=== PATIENT | female | born 1930 | race Caucasian/White ===

== ENCOUNTER 2017-08-29 08:21 | Day surgery (SDC) | payer MEDICARE, BC ==
[~2017-08-29 08:21] MED LIST: Lactated Ringers 1,000 ML IV SCH; Sodium Chloride 0.9% 10 ML Syringe FLUSH PRN
[2017-08-29] MEDS ORDERED: Propofol 200 MG/20 ML SDV ONE ×2 (09:10→09:11)
[2017-08-29] MEDS ORDERED: Midazolam 1 MG/ML 2 ML SDV ONE ×2 (09:10→09:11)
--- NOTE | 2017-08-29 09:11 | PCM.PN ---
- General Info Date of Service: 08/29/17 - Review of Systems Systems Review Comment:: 86-year-old female referred for colonoscopy. She has a history of colon polyps. She also has a known history of uterine cancer. It is been 5 years since her last colonoscopy. She is medically stable to proceed today. Her recent history and physical is reviewed and there is no significant changes. I have discussed the proposed colonoscopy with the patient. She understands indications options and risks and agrees to proceed. - Patient Data Vitals - Most Recent: Last Vital Signs Temp 98.1 F 08/29/17 08:50 Pulse 78 08/29/17 08:50 Resp 20 08/29/17 08:50 BP 130/78 08/29/17 08:50 Pulse Ox 95 08/29/17 08:50 Weight - Most Recent: 113.852 kg Med Orders - Current: Current Medications Lactated Ringer's (Ringers, Lactated) 1,000 mls @ 125 mls/hr IV ASDIRECTED [facility] Last Admin: 08/29/17 09:01 Dose: 125 mls/hr Sodium Chloride (Saline Flush) 10 ml FLUSH ASDIRECTED PRN PRN Reason: Keep Vein Open - Problem List Review Problem List Initiated/Reviewed/Updated: Yes - Assessment Assessment:: History of colon polyps History of uterine cancer - Plan Plan:: Colonoscopy
--- NOTE | 2017-08-29 09:50 | PCM.OPNOTE ---
- General Post-Op/Procedure Note Date of Surgery/Procedure: 08/29/17 Operative Procedure(s): colonoscopy with polypectomy Findings: Small colon polyps Diverticulosis Pre Op Diagnosis: History of colon polyps Post-Op Diagnosis: Colon polyps. Diverticulosis Anesthesia Technique: MAC Primary Surgeon: Alec Rodriguez Pathology: Multiple colon polyps Output, Urine Amount: 0 EBL in mLs: 0 Complications: None Condition: Good Free Text/Narrative:: Intake & Output 08/28/17 08/29/17 08/29/17 22:59 06:59 14:59 Intake Total 700 Balance 700
[2017-08-29 10:28] VITALS: BP 118/53
--- NOTE | 2017-08-29 16:42 | OR ---
Date of Procedure: 08/29/2017 PREOPERATIVE DIAGNOSIS: History of colon polyps. POSTOPERATIVE DIAGNOSES: Colon polyps and diverticulosis. OPERATIONS PERFORMED: Colonoscopy with polypectomy. INDICATIONS FOR SURGERY: This 86-year-old female has a history of colon polyps. It has been 5 years since her last colonoscopy. She also has a known history of uterine cancer. FINDINGS: The patient had small 4 to 5 mm sessile polyps in the rectum, 1 cm from the anal verge and in the cecum. She also had two 3-mm polyps in the proximal rectum. The patient also has extensive diverticulosis of the sigmoid colon. Although, this does not appear to be acutely inflamed, or otherwise, complicated. DESCRIPTION OF PROCEDURE: The patient was taken to the operating room. She was given intravenous sedation, and with her in the left lateral decubitus position, digital rectal exam was performed showing no rectal masses. The Olympus colonoscope was inserted into the rectum and retroflexed examination of the rectal canal was performed. The small rectal polyp near the anal verge was removed with a cautery snare and retrieved. The smaller polyps in the proximal rectum were destroyed with the cautery. The scope was then carefully advanced under direct visualization through the entire length of the colon until the cecum was reached. Cecal acquisition was confirmed by noting the normal internal cecal anatomy including the appendiceal orifice and ileocecal valve. The small polyp in the cecum was removed with a cautery snare and retrieved. The scope was then slowly withdrawn sequentially re-examining the colonic segments until the entire colon and rectum had been fully examined. The scope was removed and the patient was taken from the operating room in satisfactory condition. ESTIMATED BLOOD LOSS: Zero. COMPLICATIONS: None. PROGNOSIS: Good. LANCE Rodriguez MD /[id number]
== END 2017-08-29 11:01 | disposition home or self-care (01) ==
LOC: LL.SDS 08:21
PROVIDERS: ATTEND Surgery
DX: Z12.11 Encounter for screening for malignant neoplasm of colon (principal); D12.0 Benign neoplasm of cecum; K62.1 Rectal polyp; K57.30 Diverticulosis of large intestine without perforation or abscess without bleeding; E11.9 Type 2 diabetes mellitus without complications; E78.5 Hyperlipidemia, unspecified; E66.9 Obesity, unspecified; Z86.010 Personal history of colon polyps; Z85.42 Personal history of malignant neoplasm of other parts of uterus; Z79.01 Long term (current) use of anticoagulants; Z88.8 Allergy status to other drugs, medicaments and biological substances
CPT/HCPCS: 45385; J2250; J2704; J7120; 00812

== ENCOUNTER 2018-08-14 13:53 | Inpatient (IN) | payer MEDICARE, BC ==
--- NOTE | 2018-08-14 14:35 | PCM.HP ---
H&P History of Present Illness - General Date of Service: 08/14/18 Admit Problem/Dx: Admission Diagnosis/Problem Admission Diagnosis/Problem Herpes zoster Source of Information: Patient History Limitations: Reports: No Limitations - History of Present Illness Onset of Symptoms: Reports: Gradual Duration of Symptoms: Reports: Day(s): Location: Reports: Chest (right side), Back (right side, over shoulder blade area) Quality: Reports: Ache, Burning, Pressure, Sharp Severity: Severe Improves with: Reports: Other (minimal improvement with cold packs, topical steroid cream and po antiviral meds) Worsens with: Reports: Other (touch), Movement Associated Symptoms: Reports: Loss of Appetite, Malaise, Rash, Weakness - Related Data Allergies/Adverse Reactions: Allergies Allergy/AdvReac Type Severity Reaction Status Date / Time iopamidol [From Isovue-M] Allergy UNKNOWN Verified 08/14/18 14:51 levofloxacin [From Levaquin] Allergy UNKNOWN Verified 08/14/18 14:51 naproxen Allergy Itching Verified 08/14/18 14:51 Home Medications: Home Meds Apixaban [Eliquis] 2.5 mg PO BID 08/29/17 [History] Multivitamin [Multivitamins] 1 each PO DAILY 08/14/18 [History] Past Medical History HEENT History: Reports: Other (See Below) Other HEENT History: Has partial dentures Cardiovascular History: Reports: Afib, High Cholesterol, Other (See Below) Other Cardiovascular History: pt denies hx of afib, recent report that after patient was in Afib and converted back to sinus rhythm Respiratory History: Reports: PE Gastrointestinal History: Reports: Colon Polyp, Diverticulosis, Hiatal Hernia Genitourinary History: Reports: Urinary Incontinence Musculoskeletal History: Reports: Osteoarthritis Neurological History: Reports: None Other Neuro History: cerebral art aneurysm Psychiatric History: Reports: None Endocrine/Metabolic History: Reports: Diabetes, Type II Hematologic History: Reports: None Other Hematologic History: LYMPHEDEMA Immunologic History: Reports: None Oncologic (Cancer) History: Reports: Breast, Uterine Dermatologic History: Reports: None - Infectious Disease History Infectious Disease History: Reports: Chicken Pox, Measles - Past Surgical History HEENT Surgical History: Reports: Tonsillectomy Social & Family History - Family History Family Medical History: Noncontributory - Caffeine Use Caffeine Use: Reports: Coffee - Alcohol Use Alcohol Use History: Yes Alcohol Use Frequency: Rarely - Recreational Drug Use Recreational Drug Use: No - Living Situation & Occupation Living situation: Reports: H&P Review of Systems - Review of Systems: Review Of Systems: ROS reveals no pertinent complaints other than HPI. Exam - Exam Exam: See Below - Vital Signs Vital Signs: Last Vital Signs Temp 98.5 F 08/14/18 14:25 Pulse 77 08/14/18 14:25 Resp 20 08/14/18 14:25 BP 107/55 L 08/14/18 14:25 Pulse Ox 96 08/14/18 14:25 Weight: 245 lb - Exam General: Alert, Oriented, Moderate Distress HEENT: EOMI, Hearing Intact, Mucosa Moist & [place], Posterior Pharynx Clear, TMs Clear Neck: Supple, Trachea Midline Lungs: Clear to Auscultation, Normal Respiratory Effort Cardiovascular: Regular Rate, Regular Rhythm GI/Abdominal Exam: Normal Bowel Sounds, Soft, Non-Tender, No Distention (Female) Exam: Deferred Rectal (Female) Exam: Deferred Back Exam: Other (Clustered papules and pustules on an erythematous base over the right shoulder blade area, extending laterally in a dermatomal pattern) Extremities: Pedal Edema (minimal) Skin: Other (Extensive area of papules and pustules on an erythematous base starting just to the right of the midline over T2-4 and extending [address] the way to the midline anteriorly.) Neurological: Strength Equal Bilateral, Normal Gait, Normal Speech Neuro Extensive - Mental Status: Alert, Oriented x3, Normal Mood/Affect, Normal Cognition, Memory Intact Psychiatric: Alert, Normal Affect, Normal Mood - Patient Data Lab Results Last 24 hrs: Laboratory Results - last 24 hr 08/14/18 Range/Units 14:15 WBC 6.4 (4.0-10.2) K/uL RBC 4.75 (3.77-5.09) M/uL Hgb 14.7 D (11.7-15.5) g/dL Hct 44.6 (34.0-46.0) % MCV 93.9 (84.0-98.0) fL MCH 30.9 (28.2-33.3) pg MCHC 33.0 (31.7-36.0) g/dL RDW 13.4 (11.2-14.1) % Plt Count 225 (150-350) K/uL Neut % (Auto) 48.5 (45.0-80.0) % Lymph % (Auto) 38.0 (10.0-50.0) % [place] % (Auto) 9.1 (2.0-14.0) % Eos % (Auto) 3.9 (0.0-5.0) % Baso % (Auto) 0.5 (0.0-2.0) % Neut # (Auto) 3.08 (1.40-7.00) K/uL Lymph # (Auto) 2.41 (0.50-3.50) K/uL [place] # (Auto) 0.58 (0.00-1.00) K/uL Eos # (Auto) 0.25 (0.00-0.50) K/uL Baso # (Auto) 0.03 (0.00-0.20) K/uL Result Diagrams: 08/14/18 14:15 08/14/18 14:15 - Problem List (1) Herpes zoster SNOMED Code(s): 3416926 ICD Code: B02.9 - ZOSTER WITHOUT COMPLICATIONS Status: Acute Priority: High Current Visit: Yes Onset Date: ~08/11/18 Problem Details: Outpatient Therapy Failure Qualifiers: Herpes zoster complications: with other complications Qualified Code(s): B02.8 - Zoster with other complications Problem List Initiated/Reviewed/Updated: Yes Orders Last 24hrs: Active Orders 24 hr Category Date Time Status Patient Status [ADT] Routine ADT 08/14/18 14:03 Ordered Ambulate [RC] PER UNIT ROUTINE Care 08/14/18 14:06 Ordered Antiembolic Devices [RC] PER UNIT ROUTINE Care 08/14/18 14:07 Ordered Height and Weight [RC] UPON Care 08/14/18 14:03 Ordered Intake and Output [RC] QSHIFT Care 08/14/18 14:06 Ordered May Shower [RC] ASDIRECTED Care 08/14/18 14:03 Ordered Oxygen Therapy [RC] PRN Care 08/14/18 14:03 Ordered Up With Assistance [RC] ASDIRECTED Care 08/14/18 14:03 Ordered VTE/DVT Education [RC] PER UNIT ROUTINE Care 08/14/18 14:03 Ordered Vital Signs [RC] QID Care 08/14/18 14:03 Ordered [place] [employer] Diet [DIET] Diet 08/14/18 Dinner Ordered C-REACTIVE PROTEIN [CHEM] AM Lab 08/15/18 05:11 Ordered C-REACTIVE PROTEIN [CHEM] AM Lab 08/16/18 05:11 Ordered C-REACTIVE PROTEIN [CHEM] AM Lab 08/17/18 05:11 Ordered C-REACTIVE PROTEIN [CHEM] AM Lab 08/18/18 05:11 Ordered C-REACTIVE PROTEIN [CHEM] Routine Lab 08/14/18 14:03 Ordered CBC WITH AUTO DIFF [HEME] AM Lab 08/15/18 05:11 Ordered CBC WITH AUTO DIFF [HEME] AM Lab 08/16/18 05:11 Ordered CBC WITH AUTO DIFF [HEME] AM Lab 08/17/18 05:11 Ordered CBC WITH AUTO DIFF [HEME] AM Lab 08/18/18 05:11 Ordered COMPREHENSIVE METABOLIC PN,CMP [CHEM] AM Lab 08/15/18 05:11 Ordered COMPREHENSIVE METABOLIC PN,CMP [CHEM] AM Lab 08/16/18 05:11 Ordered COMPREHENSIVE METABOLIC PN,CMP [CHEM] AM Lab 08/17/18 05:11 Ordered COMPREHENSIVE METABOLIC PN,CMP [CHEM] AM Lab 08/18/18 05:11 Ordered COMPREHENSIVE METABOLIC PN,CMP [CHEM] Routine Lab 08/14/18 14:03 Ordered Acetaminophen [Tylenol Extra Strength] Med 08/14/18 14:22 Ordered 500 mg PO TID PRN Acyclovir [Zovirax] 1,000 mg Med 08/14/18 14:15 Ordered Sodium Chloride 0.9% [Normal Saline] 250 ml IV Q8H Apixaban [Eliquis] Med 08/14/18 18:00 Ordered 2.5 mg PO BID Sodium Chloride 0.9% [Saline Flush] Med 08/14/18 14:03 Ordered 10 ml FLUSH ASDIRECTED PRN Triamcinolone Acetonide [Triamcinolone Acetonide 0.5%] Med 08/14/18 18:00 Ordered See Dose Instructions TOP BID methylPREDNISolone Sod Succ [Solu-MEDROL] Med 08/14/18 14:15 Ordered 40 mg IVPUSH Q8H traMADol [Ultram] Med 08/14/18 14:18 Ordered 50 mg PO Q6H PRN Antiembolic Hose [OM.PC] Per Unit Routine Oth 08/14/18 14:06 Ordered Saline Lock Insert [OM.PC] Routine Oth 08/14/18 14:03 Ordered Resuscitation Status Routine Resus Stat 08/14/18 14:03 Ordered Medication Orders Acetaminophen (Tylenol Extra Strength) 500 mg PO TID PRN PRN Reason: Pain Apixaban (Eliquis) 2.5 mg PO BID [facility] Acyclovir 1,000 mg/ Sodium (Chloride) 250 mls @ 250 mls/hr IV Q8H [place] Methylprednisolone Sodium Succinate (Solu-Medrol) 40 mg IVPUSH Q8H [place] Sodium Chloride (Saline Flush) 10 ml FLUSH ASDIRECTED PRN PRN Reason: Keep Vein Open Tramadol HCl (Ultram) 50 mg PO Q6H PRN PRN Reason: Pain Triamcinolone Acetonide (Triamcinolone Acetonide 0.5%) 0 gm TOP BID [facility] Assessment/Plan Comment:: 08-14-18 Jose Harris PA-C This 87 yr-old female is being admitted to IP status under the medical management of Dr. Manzano for acute Herpes Zoster with OP therapy failure, with complications of severe pain with weakness, malaise and anorexia secondary to severe pain. Dr Manzano consulted at the time of admit. Patient had been started on OP therapy three days prior but symptoms all markedly worsening on recheck today. Patient is started on IV Acyclovir and Solu-Medrol, with Tylenol and Tramadol available for pain. Can consider stronger pain meds if necessary. Continuing topical triamcinolone. Anticipate 96 hours of IP care. Will order PT and OT consults for strengthening. Will also monitor Accu-cheks for DM d/t IV steroid.
[2018-08-14] MEDS: traMADol 50 MG Tab PO PRN (15:06)
[2018-08-14] MEDS: methylPREDNISolone Sodium Succinate 40 MG/1 ML SDV IVPUSH SCH ×2 (15:06→22:35)
[2018-08-14] MEDS: Sodium Chloride 0.9% 10 ML Syringe FLUSH PRN ×2 (15:07→22:35)
[2018-08-14] MEDS: Triamcinolone Acetonide 0.5% Crm 15 GM Tube TOP SCH (17:53)
[2018-08-14] MEDS: Apixaban 2.5 MG Tab PO SCH (17:53)
[2018-08-15] MEDS: Sodium Chloride 0.9% 10 ML Syringe FLUSH PRN ×2 (03:21→14:52)
[2018-08-15] MEDS: Pantoprazole 40 MG Vial IVPUSH SCH (07:37)
[2018-08-15] MEDS: Apixaban 2.5 MG Tab PO SCH ×2 (07:37→17:21)
[2018-08-15] MEDS: Sodium Chloride 0.9% 10 ML Syringe FLUSH SCH ×2 (07:38→20:38)
[2018-08-15] MEDS: methylPREDNISolone Sodium Succinate 40 MG/1 ML SDV IVPUSH SCH (07:38)
[2018-08-15] MEDS: Triamcinolone Acetonide 0.5% Crm 15 GM Tube TOP SCH ×2 (07:39→20:06)
--- NOTE | 2018-08-15 18:42 | PCM.PN ---
- General Info Date of Service: 08/15/18 Admission Dx/Problem (Free Text): Admission Diagnosis/Problem Admission Diagnosis/Problem Herpes zoster Functional Status: Reports: Pain Controlled (still painful) - Review of Systems General: Reports: No Symptoms HEENT: Reports: No Symptoms Pulmonary: Reports: No Symptoms Cardiovascular: Reports: No Symptoms Gastrointestinal: Reports: No Symptoms Genitourinary: Reports: No Symptoms Musculoskeletal: Reports: Other (right chest wall pain) Skin: Reports: Rash (dermatome distribution right chest wall) Neurological: Reports: Tingling (right chest wall), Other (pain right chest wall ) Psychiatric: Reports: No Symptoms - Patient Data Vitals - Most Recent: Last Vital Signs Temp 97.6 F 08/15/18 16:00 Pulse 99 08/15/18 16:00 Resp 16 08/15/18 16:00 BP 140/83 08/15/18 16:00 Pulse Ox 98 08/15/18 16:00 Weight - Most Recent: 245 lb I&O - Last 24 Hours: Intake & Output 08/15/18 08/15/18 08/15/18 06:59 14:59 22:59 Intake Total 250 1950 Balance 250 1950 Lab Results Last 24 Hours: Laboratory Results - last 24 hr 08/15/18 08/15/18 08/15/18 Range/Units 04:57 06:50 06:50 WBC 6.7 (4.0-10.2) K/uL RBC 4.71 (3.77-5.09) M/uL Hgb 14.4 (11.7-15.5) g/dL Hct 43.7 (34.0-46.0) % MCV 92.8 (84.0-98.0) fL MCH 30.6 (28.2-33.3) pg MCHC 33.0 (31.7-36.0) g/dL RDW 13.0 (11.2-14.1) % Plt Count 240 (150-350) K/uL Neut % (Auto) 78.3 (45.0-80.0) % Lymph % (Auto) 20.4 (10.0-50.0) % [place] % (Auto) 1.2 L (2.0-14.0) % Eos % (Auto) 0.0 (0.0-5.0) % Baso % (Auto) 0.1 (0.0-2.0) % Neut # (Auto) 5.22 (1.40-7.00) K/uL Lymph # (Auto) 1.36 (0.50-3.50) K/uL [place] # (Auto) 0.08 (0.00-1.00) K/uL Eos # (Auto) 0.00 (0.00-0.50) K/uL Baso # (Auto) 0.01 (0.00-0.20) K/uL Sodium 138 (136-145) mmol/L Potassium 4.5 (3.5-5.1) mmol/L Chloride 103 (98-107) mmol/L Carbon Dioxide 24.8 (21.0-32.0) mmol/L BUN 23 H (7-18) mg/dL Creatinine 1.08 (0.51-1.17) mg/dL Est Cr Clr Drug Dosing 33.02 mL/min Estimated GFR (MDRD) 48 mL/min Glucose 205 H (74-106) mg/dL POC Glucose 198 H (65-110) mg/dl Calcium 9.0 (8.5-10.1) mg/dL Total Bilirubin 0.3 (0.2-1.0) mg/dL AST 16 (15-37) U/L ALT 24 (12-78) U/L Alkaline Phosphatase 84 (46-116) IU/L C-Reactive Protein 1.5 H (<=0.9) mg/dL Total Protein 7.1 (6.4-8.2) g/dL Albumin 3.1 L (3.4-5.0) g/dL 08/15/18 Range/Units 16:57 WBC (4.0-10.2) K/uL RBC (3.77-5.09) M/uL Hgb (11.7-15.5) g/dL Hct (34.0-46.0) % MCV (84.0-98.0) fL MCH (28.2-33.3) pg MCHC (31.7-36.0) g/dL RDW (11.2-14.1) % Plt Count (150-350) K/uL Neut % (Auto) (45.0-80.0) % Lymph % (Auto) (10.0-50.0) % [place] % (Auto) (2.0-14.0) % Eos % (Auto) (0.0-5.0) % Baso % (Auto) (0.0-2.0) % Neut # (Auto) (1.40-7.00) K/uL Lymph # (Auto) (0.50-3.50) K/uL [place] # (Auto) (0.00-1.00) K/uL Eos # (Auto) (0.00-0.50) K/uL Baso # (Auto) (0.00-0.20) K/uL Sodium (136-145) mmol/L Potassium (3.5-5.1) mmol/L Chloride (98-107) mmol/L Carbon Dioxide (21.0-32.0) mmol/L BUN (7-18) mg/dL Creatinine (0.51-1.17) mg/dL Est Cr Clr Drug Dosing mL/min Estimated GFR (MDRD) mL/min Glucose (74-106) mg/dL POC Glucose 217 H (65-110) mg/dl Calcium (8.5-10.1) mg/dL Total Bilirubin (0.2-1.0) mg/dL AST (15-37) U/L ALT (12-78) U/L Alkaline Phosphatase (46-116) IU/L C-Reactive Protein (<=0.9) mg/dL Total Protein (6.4-8.2) g/dL Albumin (3.4-5.0) g/dL Med Orders - Current: Current Medications Acetaminophen (Tylenol Extra Strength) 500 mg PO TID PRN PRN Reason: Pain Apixaban (Eliquis) 2.5 mg PO BID COUNT INCLUDES THE [facility] Last Admin: 08/15/18 17:21 Dose: 2.5 mg Acyclovir 1,000 mg/ Sodium (Chloride) 250 mls @ 250 mls/hr IV Q12H COUNT INCLUDES THE [facility] Last Admin: 08/15/18 14:52 Dose: 250 mls/hr Methylprednisolone Sodium Succinate (Solu-Medrol) 40 mg IVPUSH DAILY COUNT INCLUDES THE [facility] Last Admin: 08/15/18 07:38 Dose: 40 mg Pantoprazole Sodium (Protonix Iv) 40 mg IVPUSH DAILY COUNT INCLUDES THE [facility] Last Admin: 08/15/18 07:37 Dose: 40 mg Sodium Chloride (Saline Flush) 10 ml FLUSH ASDIRECTED PRN PRN Reason: Keep Vein Open Last Admin: 08/15/18 14:52 Dose: 10 ml Sodium Chloride (Saline Flush) 10 ml FLUSH Q12HR COUNT INCLUDES THE [facility] Last Admin: 08/15/18 07:38 Dose: 10 ml Tramadol HCl (Ultram) 50 mg PO Q6H PRN PRN Reason: Pain Last Admin: 08/14/18 15:06 Dose: 50 mg Triamcinolone Acetonide (Triamcinolone Acetonide 0.5%) 0 gm TOP BID@0800,2000 COUNT INCLUDES THE [facility] Discontinued Medications Methylprednisolone Sodium Succinate (Solu-Medrol) 40 mg IVPUSH Q8H COUNT INCLUDES THE [facility] Last Admin: 08/14/18 22:35 Dose: 40 mg Triamcinolone Acetonide (Triamcinolone Acetonide 0.5%) 0 gm TOP BID COUNT INCLUDES THE [facility] Last Admin: 08/15/18 07:39 Dose: 1 applic - Exam General: Alert, Cooperative, No Acute Distress HEENT: Mucous Membr. Moist/[place] Neck: Trachea Midline, No JVD Lungs: Clear to Auscultation, Normal Respiratory Effort Cardiovascular: Regular Rate, Regular Rhythm GI/Abdominal Exam: Soft, Non-Tender, No Distention (Female) Exam: Deferred Back Exam: Normal Inspection Skin: Warm, Dry, Intact, Rash (right chest wall) Neurological: No New Focal Deficit, Other (pain right chest dermatome) Psy/Mental Status: Alert, Normal Affect, Normal Mood - Problem List & Annotations (1) Herpes zoster SNOMED Code(s): 1330480 Code(s): B02.9 - ZOSTER WITHOUT COMPLICATIONS Status: Acute Priority: High Current Visit: Yes Onset Date: ~08/11/18 Qualifiers: Herpes zoster complications: with other complications Qualified Code(s): B02.8 - Zoster with other complications Annotation/Comment:: Outpatient Therapy Failure (2) H/O total hip arthroplasty SNOMED Code(s): 035739217929, 317067523107 Code(s): Z96.649 - PRESENCE OF UNSPECIFIED ARTIFICIAL HIP JOINT Status: Acute Priority: High Current Visit: No Qualifiers: Laterality: left Qualified Code(s): Z96.642 - Presence of left artificial hip joint (3) Pulmonary embolism on right SNOMED Code(s): 72263374 Code(s): I26.99 - OTHER PULMONARY EMBOLISM WITHOUT ACUTE COR PULMONALE Status: Acute Current Visit: No (4) Atrial fibrillation SNOMED Code(s): 90872751 Code(s): I48.91 - UNSPECIFIED ATRIAL FIBRILLATION Status: Chronic Priority: Medium Current Visit: No Qualifiers: Atrial fibrillation type: paroxysmal Qualified Code(s): I48.0 - Paroxysmal atrial fibrillation (5) Diabetes mellitus SNOMED Code(s): 30043997 Code(s): E11.9 - TYPE 2 DIABETES MELLITUS WITHOUT COMPLICATIONS Status: Chronic Priority: Medium Current Visit: No Qualifiers: Diabetes mellitus type: type 2 Diabetes mellitus director long term care insulin use: without long-term use Diabetes mellitus complication status: without complication Qualified Code(s): E11.9 - Type 2 diabetes mellitus without complications (6) Hiatal hernia SNOMED Code(s): 93827348 Code(s): K44.9 - DIAPHRAGMATIC HERNIA WITHOUT OBSTRUCTION OR GANGRENE Status: Chronic Priority: Medium Current Visit: No - Problem List Review Problem List Initiated/Reviewed/Updated: Yes - My Orders Last 24 Hours: My Active Orders 08/15/18 08:00 Pantoprazole [ProTONIX IV] 40 mg IVPUSH DAILY Sodium Chloride 0.9% [Saline Flush] 10 ml FLUSH Q12HR methylPREDNISolone Sod Succ [Solu-MEDROL] 40 mg IVPUSH DAILY - Plan Plan:: 08-14-18 Jose Harris PA-C This 87 yr-old female is being admitted to IP status under the medical management of Dr. Manzano for acute Herpes Zoster with OP therapy failure, with complications of severe pain with weakness, malaise and anorexia secondary to severe pain. Dr Manzano consulted at the time of admit. Patient had been started on OP therapy three days prior but symptoms all markedly worsening on recheck today. Patient is started on IV Acyclovir and Solu-Medrol, with Tylenol and Tramadol available for pain. Can consider stronger pain meds if necessary. Continuing topical triamcinolone. Anticipate 96 hours of IP care. Will order PT and OT consults for strengthening. Will also monitor Accu-cheks for DM d/t IV steroid. 08/15/18 Jose Juan Royal MD She feels some better. Still pain under right breast. Rash persists with new blistering but some blisters starting to crust.
[2018-08-15] MEDS: Acetaminophen 500 MG Tab PO PRN (22:52)
[2018-08-16] MEDS: Sodium Chloride 0.9% 10 ML Syringe FLUSH PRN ×2 (03:08→15:15)
[2018-08-16] MEDS: Apixaban 2.5 MG Tab PO SCH ×2 (07:41→17:20)
[2018-08-16] MEDS: Acetaminophen 500 MG Tab PO PRN (07:41)
[2018-08-16] MEDS: Sodium Chloride 0.9% 10 ML Syringe FLUSH SCH ×2 (07:44→20:41)
[2018-08-16] MEDS: methylPREDNISolone Sodium Succinate 40 MG/1 ML SDV IVPUSH SCH (07:44)
[2018-08-16] MEDS: Pantoprazole 40 MG Vial IVPUSH SCH (07:45)
[2018-08-16] MEDS ORDERED: Magnesium Hydroxide 400 MG/5 ML Susp 30 ML Cup PO PRN (08:02)
[2018-08-16] MEDS: Triamcinolone Acetonide 0.5% Crm 15 GM Tube TOP SCH ×2 (09:00→20:40)
[2018-08-16] MEDS: traMADol 50 MG Tab PO PRN ×2 (09:25→20:40)
--- NOTE | 2018-08-16 17:39 | PCM.PN ---
- General Info Date of Service: 08/16/18 Admission Dx/Problem (Free Text): Admission Diagnosis/Problem Admission Diagnosis/Problem Herpes zoster Functional Status: Reports: Pain Controlled (tramadol did help pain and ice pack ) - Review of Systems General: Reports: No Symptoms HEENT: Reports: No Symptoms Pulmonary: Reports: No Symptoms Cardiovascular: Reports: No Symptoms Gastrointestinal: Reports: No Symptoms Genitourinary: Reports: No Symptoms Musculoskeletal: Reports: No Symptoms Skin: Reports: Bruising, Rash (herpes zoster right rib area) Neurological: Reports: Tingling (pain right thoracic dermatome) Psychiatric: Reports: No Symptoms - Patient Data Vitals - Most Recent: Last Vital Signs Temp 97.4 F 08/16/18 11:39 Pulse 97 08/16/18 11:39 Resp 16 08/16/18 11:39 BP 141/68 H 08/16/18 11:39 Pulse Ox 97 08/16/18 11:39 Weight - Most Recent: 245 lb I&O - Last 24 Hours: Intake & Output 08/16/18 08/16/18 08/16/18 06:59 14:59 22:59 Intake Total 450 1320 250 Balance 450 1320 250 Lab Results Last 24 Hours: Laboratory Results - last 24 hr 08/16/18 08/16/18 08/16/18 Range/Units 07:10 07:10 07:11 WBC 12.0 H (4.0-10.2) K/uL RBC 4.77 (3.77-5.09) M/uL Hgb 14.5 (11.7-15.5) g/dL Hct 44.1 (34.0-46.0) % MCV 92.5 (84.0-98.0) fL MCH 30.4 (28.2-33.3) pg MCHC 32.9 (31.7-36.0) g/dL RDW 13.2 (11.2-14.1) % Plt Count 291 (150-350) K/uL Neut % (Auto) 71.9 (45.0-80.0) % Lymph % (Auto) 21.7 (10.0-50.0) % [place] % (Auto) 6.0 (2.0-14.0) % Eos % (Auto) 0.3 (0.0-5.0) % Baso % (Auto) 0.1 (0.0-2.0) % Neut # (Auto) 8.60 H (1.40-7.00) K/uL Lymph # (Auto) 2.59 (0.50-3.50) K/uL [place] # (Auto) 0.72 (0.00-1.00) K/uL Eos # (Auto) 0.04 (0.00-0.50) K/uL Baso # (Auto) 0.01 (0.00-0.20) K/uL Sodium 140 (136-145) mmol/L Potassium 4.2 (3.5-5.1) mmol/L Chloride 105 (98-107) mmol/L Carbon Dioxide 23.6 (21.0-32.0) mmol/L BUN 27 H (7-18) mg/dL Creatinine 1.09 (0.51-1.17) mg/dL Est Cr Clr Drug Dosing 32.72 mL/min Estimated GFR (MDRD) 47 mL/min Glucose 138 H (74-106) mg/dL POC Glucose 136 H (65-110) mg/dl Calcium 8.9 (8.5-10.1) mg/dL Total Bilirubin 0.4 (0.2-1.0) mg/dL AST 13 L (15-37) U/L ALT 22 (12-78) U/L Alkaline Phosphatase 77 (46-116) IU/L C-Reactive Protein 0.6 (<=0.9) mg/dL Total Protein 6.9 (6.4-8.2) g/dL Albumin 3.2 L (3.4-5.0) g/dL 08/16/18 Range/Units 17:23 WBC (4.0-10.2) K/uL RBC (3.77-5.09) M/uL Hgb (11.7-15.5) g/dL Hct (34.0-46.0) % MCV (84.0-98.0) fL MCH (28.2-33.3) pg MCHC (31.7-36.0) g/dL RDW (11.2-14.1) % Plt Count (150-350) K/uL Neut % (Auto) (45.0-80.0) % Lymph % (Auto) (10.0-50.0) % [place] % (Auto) (2.0-14.0) % Eos % (Auto) (0.0-5.0) % Baso % (Auto) (0.0-2.0) % Neut # (Auto) (1.40-7.00) K/uL Lymph # (Auto) (0.50-3.50) K/uL [place] # (Auto) (0.00-1.00) K/uL Eos # (Auto) (0.00-0.50) K/uL Baso # (Auto) (0.00-0.20) K/uL Sodium (136-145) mmol/L Potassium (3.5-5.1) mmol/L Chloride (98-107) mmol/L Carbon Dioxide (21.0-32.0) mmol/L BUN (7-18) mg/dL Creatinine (0.51-1.17) mg/dL Est Cr Clr Drug Dosing mL/min Estimated GFR (MDRD) mL/min Glucose (74-106) mg/dL POC Glucose 311 H* (65-110) mg/dl Calcium (8.5-10.1) mg/dL Total Bilirubin (0.2-1.0) mg/dL AST (15-37) U/L ALT (12-78) U/L Alkaline Phosphatase (46-116) IU/L C-Reactive Protein (<=0.9) mg/dL Total Protein (6.4-8.2) g/dL Albumin (3.4-5.0) g/dL Med Orders - Current: Current Medications Acetaminophen (Tylenol Extra Strength) 500 mg PO TID PRN PRN Reason: Pain Last Admin: 08/16/18 07:41 Dose: 500 mg Apixaban (Eliquis) 2.5 mg PO BID [facility] Last Admin: 08/16/18 17:20 Dose: 2.5 mg Acyclovir 1,000 mg/ Sodium (Chloride) 250 mls @ 250 mls/hr IV Q12H [facility] Last Admin: 08/16/18 15:14 Dose: 250 mls/hr Magnesium Hydroxide (Milk Of Magnesia) 30 ml PO BID PRN PRN Reason: Constipation Last Admin: 08/16/18 09:21 Dose: 30 ml Methylprednisolone Sodium Succinate (Solu-Medrol) 40 mg IVPUSH DAILY [facility] Last Admin: 08/16/18 07:44 Dose: 40 mg Pantoprazole Sodium (Protonix Iv) 40 mg IVPUSH DAILY [facility] Last Admin: 08/16/18 07:45 Dose: 40 mg Sodium Chloride (Saline Flush) 10 ml FLUSH ASDIRECTED PRN PRN Reason: Keep Vein Open Last Admin: 08/16/18 15:15 Dose: 10 ml Sodium Chloride (Saline Flush) 10 ml FLUSH Q12HR [facility] Last Admin: 08/16/18 07:44 Dose: 10 ml Tramadol HCl (Ultram) 50 mg PO Q6H PRN PRN Reason: Pain Last Admin: 08/16/18 09:25 Dose: 50 mg Triamcinolone Acetonide (Triamcinolone Acetonide 0.5%) 0 gm TOP BID@0800,2000 [facility] Last Admin: 08/16/18 09:00 Dose: 1 applic Discontinued Medications Methylprednisolone Sodium Succinate (Solu-Medrol) 40 mg IVPUSH Q8H [facility] Last Admin: 08/14/18 22:35 Dose: 40 mg Triamcinolone Acetonide (Triamcinolone Acetonide 0.5%) 0 gm TOP BID [facility] Last Admin: 08/15/18 07:39 Dose: 1 applic - Exam Quality Assessment: DVT Prophylaxis HEENT: Mucous Membr. Moist/[place] Neck: Trachea Midline, No JVD Lungs: Clear to Auscultation, Normal Respiratory Effort Cardiovascular: Regular Rate, Regular Rhythm GI/Abdominal Exam: Soft, Non-Tender, No Distention (Female) Exam: Deferred Back Exam: Normal Inspection Extremities: Normal Inspection Skin: Warm, Dry, Intact, Rash (right thoracic dermatome, ) Wound/Incisions: Erythema Improving Neurological: No New Focal Deficit Psy/Mental Status: Alert, Normal Affect, Normal Mood - Problem List & Annotations (1) Herpes zoster SNOMED Code(s): 6620354 Code(s): B02.9 - ZOSTER WITHOUT COMPLICATIONS Status: Acute Priority: High Current Visit: Yes Onset Date: ~08/11/18 Qualifiers: Herpes zoster complications: with other complications Qualified Code(s): B02.8 - Zoster with other complications Annotation/Comment:: Outpatient Therapy Failure (2) H/O total hip arthroplasty SNOMED Code(s): 274490020430, 897987609192 Code(s): Z96.649 - PRESENCE OF UNSPECIFIED ARTIFICIAL HIP JOINT Status: Acute Priority: High Current Visit: No Qualifiers: Laterality: left Qualified Code(s): Z96.642 - Presence of left artificial hip joint (3) Pulmonary embolism on right SNOMED Code(s): 12579408 Code(s): I26.99 - OTHER PULMONARY EMBOLISM WITHOUT ACUTE COR PULMONALE Status: Acute Current Visit: No (4) Atrial fibrillation SNOMED Code(s): 76435748 Code(s): I48.91 - UNSPECIFIED ATRIAL FIBRILLATION Status: Chronic Priority: Medium Current Visit: No Qualifiers: Atrial fibrillation type: paroxysmal Qualified Code(s): I48.0 - Paroxysmal atrial fibrillation (5) Diabetes mellitus SNOMED Code(s): 08672525 Code(s): E11.9 - TYPE 2 DIABETES MELLITUS WITHOUT COMPLICATIONS Status: Chronic Priority: Medium Current Visit: No Qualifiers: Diabetes mellitus type: type 2 Diabetes mellitus chcf insulin use: without chcf use Diabetes mellitus complication status: without complication Qualified Code(s): E11.9 - Type 2 diabetes mellitus without complications (6) Hiatal hernia SNOMED Code(s): 29880372 Code(s): K44.9 - DIAPHRAGMATIC HERNIA WITHOUT OBSTRUCTION OR GANGRENE Status: Chronic Priority: Medium Current Visit: No - Problem List Review Problem List Initiated/Reviewed/Updated: Yes - My Orders Last 24 Hours: My Active Orders 08/16/18 08:02 Magnesium Hydroxide [Milk of Magnesia] 30 ml PO BID PRN - Plan Plan:: 08-14-18 Jose Harris PA-C This 87 yr-old female is being admitted to IP status under the medical management of Dr. Manzano for acute Herpes Zoster with OP therapy failure, with complications of severe pain with weakness, malaise and anorexia secondary to severe pain. Dr Manzano consulted at the time of admit. Patient had been started on OP therapy three days prior but symptoms all markedly worsening on recheck today. Patient is started on IV Acyclovir and Solu-Medrol, with Tylenol and Tramadol available for pain. Can consider stronger pain meds if necessary. Continuing topical triamcinolone. Anticipate 96 hours of IP care. Will order PT and OT consults for strengthening. Will also monitor Accu-cheks for DM d/t IV steroid. 08/15/18 Jose Juan Royal MD She feels some better. Still pain under right breast. Rash persists with new blistering but some blisters starting to crust. 08/16/18 Jose Juan Royal MD Still with pain right thoracic area. Rash starting to crust and dry up. Continue medical therapy.
[2018-08-17] MEDS: traMADol 50 MG Tab PO PRN ×2 (02:42→09:55)
[2018-08-17] MEDS: Apixaban 2.5 MG Tab PO SCH ×2 (07:19→17:22)
[2018-08-17] MEDS: Pantoprazole 40 MG Vial IVPUSH SCH (07:19)
[2018-08-17] MEDS: methylPREDNISolone Sodium Succinate 40 MG/1 ML SDV IVPUSH SCH (07:20)
[2018-08-17] MEDS: Triamcinolone Acetonide 0.5% Crm 15 GM Tube TOP SCH ×2 (07:20→20:00)
[2018-08-17] MEDS: Sodium Chloride 0.9% 10 ML Syringe FLUSH SCH ×2 (07:20→20:00)
[2018-08-17] MEDS: Acetaminophen 500 MG Tab PO PRN (09:54)
[2018-08-17] MEDS: Sodium Chloride 0.9% 10 ML Syringe FLUSH PRN (14:43)
--- NOTE | 2018-08-17 23:06 | PCM.PN ---
- General Info Date of Service: 08/17/18 Admission Dx/Problem (Free Text): Admission Diagnosis/Problem Admission Diagnosis/Problem Herpes zoster Functional Status: Reports: Pain Controlled (on tramadol and tylenol given together) - Review of Systems General: Reports: Malaise (improving) HEENT: Reports: No Symptoms Pulmonary: Reports: No Symptoms Cardiovascular: Reports: No Symptoms Gastrointestinal: Reports: No Symptoms Genitourinary: Reports: No Symptoms Musculoskeletal: Reports: Back Pain (right thoracic) Skin: Reports: Rash (right thoracic dermatome) Neurological: Reports: Tingling (pain right thoracic dermatome) Psychiatric: Reports: No Symptoms - Patient Data Vitals - Most Recent: Last Vital Signs Temp 98.9 F 08/17/18 19:36 Pulse 89 08/17/18 19:36 Resp 16 08/17/18 19:36 BP 145/85 H 08/17/18 19:36 Pulse Ox 94 L 08/17/18 19:36 Weight - Most Recent: 245 lb I&O - Last 24 Hours: Intake & Output 08/17/18 08/17/18 08/18/18 14:59 22:59 06:59 Intake Total 710 1100 Output Total 500 Balance 710 600 Lab Results Last 24 Hours: Laboratory Results - last 24 hr 08/17/18 08/17/18 08/17/18 Range/Units 07:20 07:20 07:32 WBC 11.0 H (4.0-10.2) K/uL RBC 4.93 (3.77-5.09) M/uL Hgb 15.0 (11.7-15.5) g/dL Hct 45.6 (34.0-46.0) % MCV 92.5 (84.0-98.0) fL MCH 30.4 (28.2-33.3) pg MCHC 32.9 (31.7-36.0) g/dL RDW 13.3 (11.2-14.1) % Plt Count 286 (150-350) K/uL Neut % (Auto) 66.7 (45.0-80.0) % Lymph % (Auto) 25.9 (10.0-50.0) % [place] % (Auto) 6.8 (2.0-14.0) % Eos % (Auto) 0.5 (0.0-5.0) % Baso % (Auto) 0.1 (0.0-2.0) % Neut # (Auto) 7.32 H (1.40-7.00) K/uL Lymph # (Auto) 2.84 (0.50-3.50) K/uL [place] # (Auto) 0.74 (0.00-1.00) K/uL Eos # (Auto) 0.05 (0.00-0.50) K/uL Baso # (Auto) 0.01 (0.00-0.20) K/uL Sodium 139 (136-145) mmol/L Potassium 4.7 (3.5-5.1) mmol/L Chloride 104 (98-107) mmol/L Carbon Dioxide 27.0 (21.0-32.0) mmol/L BUN 29 H (7-18) mg/dL Creatinine 1.08 (0.51-1.17) mg/dL Est Cr Clr Drug Dosing 33.02 mL/min Estimated GFR (MDRD) 48 mL/min Glucose 124 H (74-106) mg/dL POC Glucose 120 H (65-110) mg/dl Calcium 8.7 (8.5-10.1) mg/dL Total Bilirubin 0.3 (0.2-1.0) mg/dL AST 16 (15-37) U/L ALT 24 (12-78) U/L Alkaline Phosphatase 75 (46-116) IU/L C-Reactive Protein 0.1 (<=0.9) mg/dL Total Protein 6.7 (6.4-8.2) g/dL Albumin 3.0 L (3.4-5.0) g/dL 08/17/18 Range/Units 17:21 WBC (4.0-10.2) K/uL RBC (3.77-5.09) M/uL Hgb (11.7-15.5) g/dL Hct (34.0-46.0) % MCV (84.0-98.0) fL MCH (28.2-33.3) pg MCHC (31.7-36.0) g/dL RDW (11.2-14.1) % Plt Count (150-350) K/uL Neut % (Auto) (45.0-80.0) % Lymph % (Auto) (10.0-50.0) % [place] % (Auto) (2.0-14.0) % Eos % (Auto) (0.0-5.0) % Baso % (Auto) (0.0-2.0) % Neut # (Auto) (1.40-7.00) K/uL Lymph # (Auto) (0.50-3.50) K/uL [place] # (Auto) (0.00-1.00) K/uL Eos # (Auto) (0.00-0.50) K/uL Baso # (Auto) (0.00-0.20) K/uL Sodium (136-145) mmol/L Potassium (3.5-5.1) mmol/L Chloride (98-107) mmol/L Carbon Dioxide (21.0-32.0) mmol/L BUN (7-18) mg/dL Creatinine (0.51-1.17) mg/dL Est Cr Clr Drug Dosing mL/min Estimated GFR (MDRD) mL/min Glucose (74-106) mg/dL POC Glucose 228 H (65-110) mg/dl Calcium (8.5-10.1) mg/dL Total Bilirubin (0.2-1.0) mg/dL AST (15-37) U/L ALT (12-78) U/L Alkaline Phosphatase (46-116) IU/L C-Reactive Protein (<=0.9) mg/dL Total Protein (6.4-8.2) g/dL Albumin (3.4-5.0) g/dL Med Orders - Current: Current Medications Acetaminophen (Tylenol Extra Strength) 500 mg PO TID PRN PRN Reason: Pain Last Admin: 08/17/18 09:54 Dose: 500 mg Apixaban (Eliquis) 2.5 mg PO BID [facility] Last Admin: 08/17/18 17:22 Dose: 2.5 mg Acyclovir 1,000 mg/ Sodium (Chloride) 250 mls @ 170 mls/hr IV Q12H [facility] Last Admin: 08/17/18 14:41 Dose: 250 mls/hr Magnesium Hydroxide (Milk Of Magnesia) 30 ml PO BID PRN PRN Reason: Constipation Last Admin: 08/16/18 09:21 Dose: 30 ml Methylprednisolone Sodium Succinate (Solu-Medrol) 40 mg IVPUSH DAILY [facility] Last Admin: 08/17/18 07:20 Dose: 40 mg Pantoprazole Sodium (Protonix Iv) 40 mg IVPUSH DAILY [facility] Last Admin: 08/17/18 07:19 Dose: 40 mg Sodium Chloride (Saline Flush) 10 ml FLUSH ASDIRECTED PRN PRN Reason: Keep Vein Open Last Admin: 08/17/18 14:43 Dose: 10 ml Sodium Chloride (Saline Flush) 10 ml FLUSH Q12HR [facility] Last Admin: 08/17/18 20:00 Dose: 10 ml Tramadol HCl (Ultram) 50 mg PO Q6H PRN PRN Reason: Pain Last Admin: 08/17/18 09:55 Dose: 50 mg Triamcinolone Acetonide (Triamcinolone Acetonide 0.5%) 0 gm TOP BID@0800,2000 [facility] Last Admin: 08/17/18 20:00 Dose: 1 applic Discontinued Medications Methylprednisolone Sodium Succinate (Solu-Medrol) 40 mg IVPUSH Q8H [facility] Last Admin: 08/14/18 22:35 Dose: 40 mg Triamcinolone Acetonide (Triamcinolone Acetonide 0.5%) 0 gm TOP BID [facility] Last Admin: 08/15/18 07:39 Dose: 1 applic - Exam Quality Assessment: Skin Breakdown (right thoracic herpes zoster) General: Alert, Cooperative HEENT: EOMI, Mucous Membr. Moist/[place] Neck: Trachea Midline, No JVD Lungs: Clear to Auscultation, Normal Respiratory Effort, Other (left mastectomy) Cardiovascular: Regular Rate, Regular Rhythm GI/Abdominal Exam: Soft, Non-Tender, No Distention (Female) Exam: Deferred Back Exam: Normal Inspection Extremities: Normal Inspection, Non-Tender Skin: Rash (right thoracic dermatome) Wound/Incisions: Drainage (decreasing), Erythema Improving Neurological: No New Focal Deficit Psy/Mental Status: Alert, Normal Affect, Normal Mood - Problem List & Annotations (1) Herpes zoster SNOMED Code(s): 8012246 Code(s): B02.9 - ZOSTER WITHOUT COMPLICATIONS Status: Acute Priority: High Current Visit: Yes Onset Date: ~08/11/18 Qualifiers: Herpes zoster complications: with other complications Qualified Code(s): B02.8 - Zoster with other complications Annotation/Comment:: Outpatient Therapy Failure (2) H/O total hip arthroplasty SNOMED Code(s): 693047586907, 133597110046 Code(s): Z96.649 - PRESENCE OF UNSPECIFIED ARTIFICIAL HIP JOINT Status: Acute Priority: High Current Visit: No Qualifiers: Laterality: left Qualified Code(s): Z96.642 - Presence of left artificial hip joint (3) Pulmonary embolism on right SNOMED Code(s): 84531109 Code(s): I26.99 - OTHER PULMONARY EMBOLISM WITHOUT ACUTE COR PULMONALE Status: Acute Current Visit: No (4) Atrial fibrillation SNOMED Code(s): 94318471 Code(s): I48.91 - UNSPECIFIED ATRIAL FIBRILLATION Status: Chronic Priority: Medium Current Visit: No Qualifiers: Atrial fibrillation type: paroxysmal Qualified Code(s): I48.0 - Paroxysmal atrial fibrillation (5) Diabetes mellitus SNOMED Code(s): 19795790 Code(s): E11.9 - TYPE 2 DIABETES MELLITUS WITHOUT COMPLICATIONS Status: Chronic Priority: Medium Current Visit: No Qualifiers: Diabetes mellitus type: type 2 Diabetes mellitus terminal superintendent insulin use: without terminal superintendent use Diabetes mellitus complication status: without complication Qualified Code(s): E11.9 - Type 2 diabetes mellitus without complications (6) Hiatal hernia SNOMED Code(s): 99315574 Code(s): K44.9 - DIAPHRAGMATIC HERNIA WITHOUT OBSTRUCTION OR GANGRENE Status: Chronic Priority: Medium Current Visit: No - Problem List Review Problem List Initiated/Reviewed/Updated: Yes - My Orders Last 24 Hours: My Active Orders 08/18/18 05:11 SEDIMENTATION RATE AUTO [HEME] Routine - Plan Plan:: 08-14-18 Jose Harris PA-C This 87 yr-old female is being admitted to IP status under the medical management of Dr. Manzano for acute Herpes Zoster with OP therapy failure, with complications of severe pain with weakness, malaise and anorexia secondary to severe pain. Dr Manzano consulted at the time of admit. Patient had been started on OP therapy three days prior but symptoms all markedly worsening on recheck today. Patient is started on IV Acyclovir and Solu-Medrol, with Tylenol and Tramadol available for pain. Can consider stronger pain meds if necessary. Continuing topical triamcinolone. Anticipate 96 hours of IP care. Will order PT and OT consults for strengthening. Will also monitor Accu-cheks for DM d/t IV steroid. 08/15/18 Jose Juan Royal MD She feels some better. Still pain under right breast. Rash persists with new blistering but some blisters starting to crust. 08/16/18 Jose Juan Royal MD Still with pain right thoracic area. Rash starting to crust and dry up. Continue medical therapy. 08/17/18 Jose Juan Royal MD Still with significant pain. Medications helping the pain. Rash continues to weep but is drying up. Continue IV acyclovir.
[2018-08-18] MEDS: Sodium Chloride 0.9% 10 ML Syringe FLUSH PRN (03:53)
[2018-08-18] MEDS: Acetaminophen 500 MG Tab PO PRN ×2 (03:56→20:02)
[2018-08-18] MEDS: traMADol 50 MG Tab PO PRN ×2 (03:57→20:03)
[2018-08-18] MEDS: Apixaban 2.5 MG Tab PO SCH ×2 (07:39→17:51)
[2018-08-18] MEDS: methylPREDNISolone Sodium Succinate 40 MG/1 ML SDV IVPUSH SCH (07:40)
[2018-08-18] MEDS: Triamcinolone Acetonide 0.5% Crm 15 GM Tube TOP SCH ×2 (07:40→20:04)
[2018-08-18] MEDS: Pantoprazole 40 MG Vial IVPUSH SCH (07:40)
[2018-08-18] MEDS: Sodium Chloride 0.9% 10 ML Syringe FLUSH SCH ×3 (07:40→20:05)
--- NOTE | 2018-08-18 20:54 | PCM.PN ---
- General Info Date of Service: 08/18/18 Admission Dx/Problem (Free Text): Admission Diagnosis/Problem Admission Diagnosis/Problem Herpes zoster Functional Status: Reports: Other (still with significant pain) - Review of Systems General: Reports: Malaise HEENT: Reports: No Symptoms Pulmonary: Reports: No Symptoms Cardiovascular: Reports: No Symptoms Gastrointestinal: Reports: No Symptoms Genitourinary: Reports: No Symptoms Musculoskeletal: Reports: Back Pain (right thoracic), Other (right breast pain) Skin: Reports: Rash (right thoracic) Neurological: Reports: Tingling (pain right thoracic dermatone) Psychiatric: Reports: No Symptoms - Patient Data Vitals - Most Recent: Last Vital Signs Temp 98.3 F 08/18/18 19:33 Pulse 87 08/18/18 19:33 Resp 18 08/18/18 19:33 BP 205/105 H 08/18/18 19:33 Pulse Ox 95 08/18/18 19:33 Weight - Most Recent: 244 lb 15.995 oz I&O - Last 24 Hours: Intake & Output 08/18/18 08/18/18 08/18/18 06:59 14:59 22:59 Intake Total 161 498 5568 Output Total 500 525 250 Balance 150 45 930 Lab Results Last 24 Hours: Laboratory Results - last 24 hr 08/18/18 08/18/18 08/18/18 Range/Units 06:50 06:50 17:37 WBC 10.2 (4.0-10.2) K/uL RBC 4.57 (3.77-5.09) M/uL Hgb 13.8 (11.7-15.5) g/dL Hct 42.3 (34.0-46.0) % MCV 92.6 (84.0-98.0) fL MCH 30.2 (28.2-33.3) pg MCHC 32.6 (31.7-36.0) g/dL RDW 12.8 (11.2-14.1) % Plt Count 290 (150-350) K/uL Neut % (Auto) 60.6 (45.0-80.0) % Lymph % (Auto) 29.2 (10.0-50.0) % Yell % (Auto) 9.6 (2.0-14.0) % Eos % (Auto) 0.5 (0.0-5.0) % Baso % (Auto) 0.1 (0.0-2.0) % Neut # (Auto) 6.19 (1.40-7.00) K/uL Lymph # (Auto) 2.98 (0.50-3.50) K/uL Yell # (Auto) 0.98 (0.00-1.00) K/uL Eos # (Auto) 0.05 (0.00-0.50) K/uL Baso # (Auto) 0.01 (0.00-0.20) K/uL ESR 19 (0-42) mm/hr Sodium 139 (136-145) mmol/L Potassium 4.5 (3.5-5.1) mmol/L Chloride 103 (98-107) mmol/L Carbon Dioxide 28.2 (21.0-32.0) mmol/L BUN 34 H (7-18) mg/dL Creatinine 1.21 H (0.51-1.17) mg/dL Est Cr Clr Drug Dosing 29.47 mL/min Estimated GFR (MDRD) 42 mL/min Glucose 122 H (74-106) mg/dL POC Glucose 272 H* (65-110) mg/dl Calcium 8.9 (8.5-10.1) mg/dL Total Bilirubin 0.3 (0.2-1.0) mg/dL AST 19 (15-37) U/L ALT 36 (12-78) U/L Alkaline Phosphatase 70 (46-116) IU/L Total Protein 6.3 L (6.4-8.2) g/dL Albumin 2.8 L (3.4-5.0) g/dL Med Orders - Current: Current Medications Acetaminophen (Tylenol Extra Strength) 500 mg PO TID PRN PRN Reason: Pain Last Admin: 08/18/18 20:02 Dose: 500 mg Apixaban (Eliquis) 2.5 mg PO BID REPLACED BY [facility] Last Admin: 08/18/18 17:51 Dose: 2.5 mg Acyclovir 1,000 mg/ Sodium (Chloride) 250 mls @ 170 mls/hr IV Q12H REPLACED BY [facility] Last Admin: 08/18/18 14:25 Dose: 170 mls/hr Magnesium Hydroxide (Milk Of Magnesia) 30 ml PO BID PRN PRN Reason: Constipation Last Admin: 08/16/18 09:21 Dose: 30 ml Pantoprazole Sodium (Protonix Iv) 40 mg IVPUSH DAILY REPLACED BY [facility] Last Admin: 08/18/18 07:40 Dose: 40 mg Sodium Chloride (Saline Flush) 10 ml FLUSH ASDIRECTED PRN PRN Reason: Keep Vein Open Last Admin: 08/18/18 03:53 Dose: 10 ml Sodium Chloride (Saline Flush) 10 ml FLUSH Q12HR REPLACED BY [facility] Last Admin: 08/18/18 20:05 Dose: Not Given Tramadol HCl (Ultram) 50 mg PO Q6H PRN PRN Reason: Pain Last Admin: 08/18/18 20:03 Dose: 50 mg Triamcinolone Acetonide (Triamcinolone Acetonide 0.5%) 0 gm TOP BID@0800,2000 REPLACED BY [facility] Last Admin: 08/18/18 20:04 Dose: 1 applic Discontinued Medications Methylprednisolone Sodium Succinate (Solu-Medrol) 40 mg IVPUSH Q8H REPLACED BY [facility] Last Admin: 08/14/18 22:35 Dose: 40 mg Methylprednisolone Sodium Succinate (Solu-Medrol) 40 mg IVPUSH DAILY REPLACED BY [facility] Last Admin: 08/18/18 07:40 Dose: 40 mg Triamcinolone Acetonide (Triamcinolone Acetonide 0.5%) 0 gm TOP BID REPLACED BY [facility] Last Admin: 08/15/18 07:39 Dose: 1 applic - Exam Quality Assessment: Skin Breakdown (right thoracic herpes zoster) General: Alert, Cooperative HEENT: Mucous Membr. Moist/[place] Neck: Trachea Midline, No JVD Lungs: Clear to Auscultation, Normal Respiratory Effort Cardiovascular: Regular Rate, Regular Rhythm GI/Abdominal Exam: Soft, Non-Tender, No Distention (Female) Exam: Deferred Back Exam: Normal Inspection Extremities: Normal Inspection Skin: Rash (right thoracic dermatome) Wound/Incisions: Drainage (decreasing), Erythema Improving Neurological: No New Focal Deficit Psy/Mental Status: Alert, Normal Affect, Normal Mood - Problem List & Annotations (1) Herpes zoster SNOMED Code(s): 8766310 Code(s): B02.9 - ZOSTER WITHOUT COMPLICATIONS Status: Acute Priority: High Current Visit: Yes Onset Date: ~08/11/18 Qualifiers: Herpes zoster complications: with other complications Qualified Code(s): B02.8 - Zoster with other complications Annotation/Comment:: Outpatient Therapy Failure (2) H/O total hip arthroplasty SNOMED Code(s): 635628341164, 130304560579 Code(s): Z96.649 - PRESENCE OF UNSPECIFIED ARTIFICIAL HIP JOINT Status: Acute Priority: High Current Visit: No Qualifiers: Laterality: left Qualified Code(s): Z96.642 - Presence of left artificial hip joint (3) Pulmonary embolism on right SNOMED Code(s): 36099493 Code(s): I26.99 - OTHER PULMONARY EMBOLISM WITHOUT ACUTE COR PULMONALE Status: Acute Current Visit: No (4) Atrial fibrillation SNOMED Code(s): 81096139 Code(s): I48.91 - UNSPECIFIED ATRIAL FIBRILLATION Status: Chronic Priority: Medium Current Visit: No Qualifiers: Atrial fibrillation type: paroxysmal Qualified Code(s): I48.0 - Paroxysmal atrial fibrillation (5) Diabetes mellitus SNOMED Code(s): 54815191 Code(s): E11.9 - TYPE 2 DIABETES MELLITUS WITHOUT COMPLICATIONS Status: Chronic Priority: Medium Current Visit: No Qualifiers: Diabetes mellitus type: type 2 Diabetes mellitus fdc insulin use: without long term care pharmacist use Diabetes mellitus complication status: without complication Qualified Code(s): E11.9 - Type 2 diabetes mellitus without complications (6) Hiatal hernia SNOMED Code(s): 30981209 Code(s): K44.9 - DIAPHRAGMATIC HERNIA WITHOUT OBSTRUCTION OR GANGRENE Status: Chronic Priority: Medium Current Visit: No - Problem List Review Problem List Initiated/Reviewed/Updated: Yes - My Orders Last 24 Hours: My Active Orders 08/19/18 05:11 BASIC METABOLIC PANEL,BMP [CHEM] Routine CBC WITH AUTO DIFF [HEME] Routine - Plan Plan:: 08-14-18 Jose Harris PA-C This 87 yr-old female is being admitted to status under the medical management of Dr. Manzano for acute Herpes Zoster with OP therapy failure, with complications of severe pain with weakness, malaise and anorexia secondary to severe pain. Dr Manzano consulted at the time of admit. Patient had been started on OP therapy three days prior but symptoms all markedly worsening on recheck today. Patient is started on IV Acyclovir and Solu-Medrol, with Tylenol and Tramadol available for pain. Can consider stronger pain meds if necessary. Continuing topical triamcinolone. Anticipate 96 hours of IP care. Will order PT and OT consults for strengthening. Will also monitor Accu-cheks for DM d/t IV steroid. 08/15/18 Jose Juan Royal MD She feels some better. Still pain under right breast. Rash persists with new blistering but some blisters starting to crust. 08/16/18 Jose Juan Royal MD Still with pain right thoracic area. Rash starting to crust and dry up. Continue medical therapy. 08/17/18 Jose Juan Royal MD Still with significant pain. Medications helping the pain. Rash continues to weep but is drying up. Continue IV acyclovir. 08/18/18 Jose Juan Royal MD Still with significant pain. Rash is improving but does continue to weep and drain. Clinically necessary to continue IV acyclovir and inpatient status.
[2018-08-19] MEDS: Sodium Chloride 0.9% 10 ML Syringe FLUSH PRN ×3 (02:15→14:59)
[2018-08-19] MEDS: Pantoprazole 40 MG Vial IVPUSH SCH (07:29)
[2018-08-19] MEDS: Sodium Chloride 0.9% 10 ML Syringe FLUSH SCH ×2 (07:29→20:07)
[2018-08-19] MEDS: Apixaban 2.5 MG Tab PO SCH ×2 (07:29→17:36)
[2018-08-19] MEDS: Triamcinolone Acetonide 0.5% Crm 15 GM Tube TOP SCH ×2 (07:34→20:07)
[2018-08-19] MEDS: Acetaminophen 500 MG Tab PO PRN (07:40)
[2018-08-19] MEDS: traMADol 50 MG Tab PO PRN (07:41)
--- NOTE | 2018-08-20 00:46 | PCM.PN ---
- General Info Date of Service: 08/19/18 Admission Dx/Problem (Free Text): Admission Diagnosis/Problem Admission Diagnosis/Problem Herpes zoster Functional Status: Reports: Tolerating Diet, Other (pain still terrible but oral medications helping) - Review of Systems HEENT: Reports: No Symptoms Pulmonary: Reports: No Symptoms Cardiovascular: Reports: No Symptoms Gastrointestinal: Reports: No Symptoms Genitourinary: Reports: No Symptoms Musculoskeletal: Reports: Other (right thoracic) Skin: Reports: Rash (right thoracic dermatome) Neurological: Reports: Tingling (pain right thoracic dermatome) Psychiatric: Reports: No Symptoms - Patient Data Vitals - Most Recent: Last Vital Signs Temp 98.4 F 08/19/18 20:00 Pulse 64 08/19/18 20:00 Resp 16 08/19/18 20:00 BP 128/73 08/19/18 20:00 Pulse Ox 96 08/19/18 20:00 Weight - Most Recent: 244 lb 15.995 oz I&O - Last 24 Hours: Intake & Output 08/19/18 08/19/18 08/20/18 14:59 22:59 06:59 Intake Total 960 Output Total 125 Balance 835 Lab Results Last 24 Hours: Laboratory Results - last 24 hr 08/19/18 08/19/18 Range/Units 06:53 06:53 WBC 10.4 H (4.0-10.2) K/uL RBC 4.85 (3.77-5.09) M/uL Hgb 14.7 (11.7-15.5) g/dL Hct 44.6 (34.0-46.0) % MCV 92.0 (84.0-98.0) fL MCH 30.3 (28.2-33.3) pg MCHC 33.0 (31.7-36.0) g/dL RDW 12.9 (11.2-14.1) % Plt Count 288 (150-350) K/uL Neut % (Auto) 61.5 (45.0-80.0) % Lymph % (Auto) 29.3 (10.0-50.0) % [place] % (Auto) 8.4 (2.0-14.0) % Eos % (Auto) 0.7 (0.0-5.0) % Baso % (Auto) 0.1 (0.0-2.0) % Neut # (Auto) 6.40 (1.40-7.00) K/uL Lymph # (Auto) 3.04 (0.50-3.50) K/uL [place] # (Auto) 0.87 (0.00-1.00) K/uL Eos # (Auto) 0.07 (0.00-0.50) K/uL Baso # (Auto) 0.01 (0.00-0.20) K/uL Sodium 139 (136-145) mmol/L Potassium 4.6 (3.5-5.1) mmol/L Chloride 103 (98-107) mmol/L Carbon Dioxide 29.9 (21.0-32.0) mmol/L BUN 31 H (7-18) mg/dL Creatinine 1.10 (0.51-1.17) mg/dL Est Cr Clr Drug Dosing 32.37 mL/min Estimated GFR (MDRD) 47 mL/min Glucose 116 H (74-106) mg/dL Calcium 8.8 (8.5-10.1) mg/dL Med Orders - Current: Current Medications Acetaminophen (Tylenol Extra Strength) 500 mg PO TID PRN PRN Reason: Pain Last Admin: 08/19/18 07:40 Dose: 500 mg Apixaban (Eliquis) 2.5 mg PO BID [facility] Last Admin: 08/19/18 17:36 Dose: 2.5 mg Acyclovir 1,000 mg/ Sodium (Chloride) 250 mls @ 170 mls/hr IV Q12H [facility] Last Admin: 08/19/18 14:58 Dose: 170 mls/hr Magnesium Hydroxide (Milk Of Magnesia) 30 ml PO BID PRN PRN Reason: Constipation Last Admin: 08/16/18 09:21 Dose: 30 ml Pantoprazole Sodium (Protonix Iv) 40 mg IVPUSH DAILY [facility] Last Admin: 08/19/18 07:29 Dose: 40 mg Sodium Chloride (Saline Flush) 10 ml FLUSH ASDIRECTED PRN PRN Reason: Keep Vein Open Last Admin: 08/19/18 14:59 Dose: 10 ml Sodium Chloride (Saline Flush) 10 ml FLUSH Q12HR [facility] Last Admin: 08/19/18 20:07 Dose: 10 ml Tramadol HCl (Ultram) 50 mg PO Q6H PRN PRN Reason: Pain Last Admin: 08/19/18 07:41 Dose: 50 mg Triamcinolone Acetonide (Triamcinolone Acetonide 0.5%) 0 gm TOP BID@0800,2000 [facility] Last Admin: 08/19/18 20:07 Dose: 1 applic Discontinued Medications Methylprednisolone Sodium Succinate (Solu-Medrol) 40 mg IVPUSH Q8H [facility] Last Admin: 08/14/18 22:35 Dose: 40 mg Methylprednisolone Sodium Succinate (Solu-Medrol) 40 mg IVPUSH DAILY [facility] Last Admin: 08/18/18 07:40 Dose: 40 mg Triamcinolone Acetonide (Triamcinolone Acetonide 0.5%) 0 gm TOP BID [facility] Last Admin: 08/15/18 07:39 Dose: 1 applic - Exam Quality Assessment: DVT Prophylaxis (eliquis) General: Alert, Cooperative, Mild Distress HEENT: Mucous Membr. Moist/[place] Neck: Trachea Midline, No JVD Lungs: Clear to Auscultation, Normal Respiratory Effort Cardiovascular: Regular Rate, Regular Rhythm GI/Abdominal Exam: Soft, Non-Tender, No Distention (Female) Exam: Deferred Back Exam: Normal Inspection (except skin) Extremities: Non-Tender Skin: Rash (right thoracic dermatome) Wound/Incisions: Drainage (improving but persists), Erythema (still significant) , Other (some of the blisters are blackened (eschar), crusts still draining) Neurological: No New Focal Deficit, Other (right thoracic dermatome) Psy/Mental Status: Alert, Normal Affect, Normal Mood, Anxious (about going home) - Problem List & Annotations (1) Herpes zoster SNOMED Code(s): 3004864 Code(s): B02.9 - ZOSTER WITHOUT COMPLICATIONS Status: Acute Priority: High Current Visit: Yes Onset Date: ~08/11/18 Qualifiers: Herpes zoster complications: with other complications Qualified Code(s): B02.8 - Zoster with other complications Annotation/Comment:: Outpatient Therapy Failure (2) H/O total hip arthroplasty SNOMED Code(s): 085796121480, 404300990051 Code(s): Z96.649 - PRESENCE OF UNSPECIFIED ARTIFICIAL HIP JOINT Status: Acute Priority: High Current Visit: No Qualifiers: Laterality: left Qualified Code(s): Z96.642 - Presence of left artificial hip joint (3) Pulmonary embolism on right SNOMED Code(s): 82289888 Code(s): I26.99 - OTHER PULMONARY EMBOLISM WITHOUT ACUTE COR PULMONALE Status: Acute Current Visit: No (4) Atrial fibrillation SNOMED Code(s): 15244925 Code(s): I48.91 - UNSPECIFIED ATRIAL FIBRILLATION Status: Chronic Priority: Medium Current Visit: No Qualifiers: Atrial fibrillation type: paroxysmal Qualified Code(s): I48.0 - Paroxysmal atrial fibrillation (5) Diabetes mellitus SNOMED Code(s): 15641452 Code(s): E11.9 - TYPE 2 DIABETES MELLITUS WITHOUT COMPLICATIONS Status: Chronic Priority: Medium Current Visit: No Qualifiers: Diabetes mellitus type: type 2 Diabetes mellitus oysterman insulin use: without oysterman use Diabetes mellitus complication status: without complication Qualified Code(s): E11.9 - Type 2 diabetes mellitus without complications (6) Hiatal hernia SNOMED Code(s): 50760179 Code(s): K44.9 - DIAPHRAGMATIC HERNIA WITHOUT OBSTRUCTION OR GANGRENE Status: Chronic Priority: Medium Current Visit: No - Problem List Review Problem List Initiated/Reviewed/Updated: Yes - My Orders Last 24 Hours: My Active Orders 08/20/18 05:11 BASIC METABOLIC PANEL,BMP [CHEM] Routine CBC WITH AUTO DIFF [HEME] Routine - Plan Plan:: 08-14-18 Jose Harris PA-C This 87 yr-old female is being admitted to IP status under the medical management of Dr. Manzano for acute Herpes Zoster with OP therapy failure, with complications of severe pain with weakness, malaise and anorexia secondary to severe pain. Dr Manzano consulted at the time of admit. Patient had been started on OP therapy three days prior but symptoms all markedly worsening on recheck today. Patient is started on IV Acyclovir and Solu-Medrol, with Tylenol and Tramadol available for pain. Can consider stronger pain meds if necessary. Continuing topical triamcinolone. Anticipate 96 hours of IP care. Will order PT and OT consults for strengthening. Will also monitor Accu-cheks for DM d/t IV steroid. 08/15/18 Jose Juan Royal MD She feels some better. Still pain under right breast. Rash persists with new blistering but some blisters starting to crust. 08/16/18 Jose Juan Royal MD Still with pain right thoracic area. Rash starting to crust and dry up. Continue medical therapy. 08/17/18 Jose Juan Royal MD Still with significant pain. Medications helping the pain. Rash continues to weep but is drying up. Continue IV acyclovir. 08/18/18 Jose Juan Royal MD Still with significant pain. Rash is improving but does continue to weep and drain. Clinically necessary to continue IV acyclovir and inpatient status. 08/19/18 late entry Jose Juan Royal MD Still with significant pain and rash. Rash does continue to weep and drain. Kidney function did improve today. Due to severity of illness and multiple medical diagnosis she needs continued inpatient status and IV acyclovir. Weaning off IV steroids. Medically necessary to monitor kidney function, blood sugar, blood pressure (elevated yesterday), pulse (elevated yesterday but improving), and dressing changes. Did discuss discharge plans. She will not be able to do her own dressing changes. Discussed home health. Initially says yes then changed her mind and says her daughter Ibeth will be able to change dressing at least daily.
[2018-08-20] MEDS: Acetaminophen 500 MG Tab PO PRN ×2 (03:40→11:48)
[2018-08-20] MEDS: traMADol 50 MG Tab PO PRN ×2 (03:40→11:50)
[2018-08-20] MEDS: Sodium Chloride 0.9% 10 ML Syringe FLUSH PRN (03:41)
[2018-08-20 07:55] VITALS: BP 123/85
[2018-08-20] MEDS: Pantoprazole 40 MG Vial IVPUSH SCH (08:22)
[2018-08-20] MEDS: Apixaban 2.5 MG Tab PO SCH (08:22)
[2018-08-20] MEDS: Sodium Chloride 0.9% 10 ML Syringe FLUSH SCH (08:23)
[2018-08-20] MEDS: Triamcinolone Acetonide 0.5% Crm 15 GM Tube TOP SCH (08:24)
--- NOTE | 2018-08-20 10:24 | PCM.PN ---
- General Info Date of Service: 08/20/18 Admission Dx/Problem (Free Text): Admission Diagnosis/Problem Admission Diagnosis/Problem Herpes zoster Functional Status: Reports: Pain Controlled (with medications) - Review of Systems General: Reports: No Symptoms HEENT: Reports: No Symptoms Pulmonary: Reports: No Symptoms Cardiovascular: Reports: No Symptoms Gastrointestinal: Reports: No Symptoms Genitourinary: Reports: No Symptoms Musculoskeletal: Reports: Other (pain right thoracic dermatome) Skin: Reports: Rash Neurological: Reports: Tingling (pain right thoracic dermatome) Psychiatric: Reports: Anxiety - Patient Data Vitals - Most Recent: Last Vital Signs Temp 96.8 F 08/20/18 07:54 Pulse 93 08/20/18 07:54 Resp 17 08/20/18 07:54 BP 123/85 08/20/18 07:54 Pulse Ox 96 08/20/18 07:54 Weight - Most Recent: 244 lb 15.995 oz I&O - Last 24 Hours: Intake & Output 08/19/18 08/20/18 08/20/18 22:59 06:59 14:59 Intake Total 400 600 Output Total 300 Balance 100 600 Lab Results Last 24 Hours: Laboratory Results - last 24 hr 08/20/18 08/20/18 Range/Units 06:45 06:45 WBC 10.5 H (4.0-10.2) K/uL RBC 4.67 (3.77-5.09) M/uL Hgb 14.2 (11.7-15.5) g/dL Hct 43.1 (34.0-46.0) % MCV 92.3 (84.0-98.0) fL MCH 30.4 (28.2-33.3) pg MCHC 32.9 (31.7-36.0) g/dL RDW 13.0 (11.2-14.1) % Plt Count 279 (150-350) K/uL Neut % (Auto) 65.0 (45.0-80.0) % Lymph % (Auto) 24.8 (10.0-50.0) % [place] % (Auto) 8.7 (2.0-14.0) % Eos % (Auto) 1.3 (0.0-5.0) % Baso % (Auto) 0.2 (0.0-2.0) % Neut # (Auto) 6.83 (1.40-7.00) K/uL Lymph # (Auto) 2.60 (0.50-3.50) K/uL [place] # (Auto) 0.91 (0.00-1.00) K/uL Eos # (Auto) 0.14 (0.00-0.50) K/uL Baso # (Auto) 0.02 (0.00-0.20) K/uL Sodium 138 (136-145) mmol/L Potassium 4.7 (3.5-5.1) mmol/L Chloride 101 (98-107) mmol/L Carbon Dioxide 28.0 (21.0-32.0) mmol/L BUN 36 H (7-18) mg/dL Creatinine 1.30 H (0.51-1.17) mg/dL Est Cr Clr Drug Dosing 27.39 mL/min Estimated GFR (MDRD) 39 mL/min Glucose 151 H (74-106) mg/dL Calcium 8.6 (8.5-10.1) mg/dL Med Orders - Current: Current Medications Acetaminophen (Tylenol Extra Strength) 500 mg PO TID PRN PRN Reason: Pain Last Admin: 08/20/18 03:40 Dose: 500 mg Apixaban (Eliquis) 2.5 mg PO BID [facility] Last Admin: 08/20/18 08:22 Dose: 2.5 mg Acyclovir 1,000 mg/ Sodium (Chloride) 250 mls @ 170 mls/hr IV Q12H [facility] Last Admin: 08/20/18 03:41 Dose: 170 mls/hr Magnesium Hydroxide (Milk Of Magnesia) 30 ml PO BID PRN PRN Reason: Constipation Last Admin: 08/16/18 09:21 Dose: 30 ml Pantoprazole Sodium (Protonix Iv) 40 mg IVPUSH DAILY [facility] Last Admin: 08/20/18 08:22 Dose: 40 mg Sodium Chloride (Saline Flush) 10 ml FLUSH ASDIRECTED PRN PRN Reason: Keep Vein Open Last Admin: 08/20/18 03:41 Dose: 10 ml Sodium Chloride (Saline Flush) 10 ml FLUSH Q12HR [facility] Last Admin: 08/20/18 08:23 Dose: 10 ml Tramadol HCl (Ultram) 50 mg PO Q6H PRN PRN Reason: Pain Last Admin: 08/20/18 03:40 Dose: 50 mg Triamcinolone Acetonide (Triamcinolone Acetonide 0.5%) 0 gm TOP BID@0800,2000 [facility] Last Admin: 08/20/18 08:24 Dose: 1 applic Discontinued Medications Methylprednisolone Sodium Succinate (Solu-Medrol) 40 mg IVPUSH Q8H [facility] Last Admin: 08/14/18 22:35 Dose: 40 mg Methylprednisolone Sodium Succinate (Solu-Medrol) 40 mg IVPUSH DAILY [facility] Last Admin: 08/18/18 07:40 Dose: 40 mg Triamcinolone Acetonide (Triamcinolone Acetonide 0.5%) 0 gm TOP BID [facility] Last Admin: 08/15/18 07:39 Dose: 1 applic - Exam Quality Assessment: DVT Prophylaxis (eliquis) General: Alert, Cooperative HEENT: Mucous Membr. Moist/[place] Neck: Trachea Midline, No JVD Lungs: Clear to Auscultation, Normal Respiratory Effort Cardiovascular: Regular Rate, Regular Rhythm GI/Abdominal Exam: Soft, Non-Tender, No Distention (Female) Exam: Deferred Back Exam: Normal Inspection Extremities: Normal Inspection, Non-Tender Skin: Rash (right thoracic dermatome) Neurological: Other (right thoracic dermatome) Psy/Mental Status: Alert, Normal Affect, Anxious - Problem List & Annotations (1) Herpes zoster SNOMED Code(s): 9288796 Code(s): B02.9 - ZOSTER WITHOUT COMPLICATIONS Status: Acute Priority: High Current Visit: Yes Onset Date: ~08/11/18 Qualifiers: Herpes zoster complications: with other complications Qualified Code(s): B02.8 - Zoster with other complications Annotation/Comment:: Outpatient Therapy Failure (2) H/O total hip arthroplasty SNOMED Code(s): 854163983541, 157980993270 Code(s): Z96.649 - PRESENCE OF UNSPECIFIED ARTIFICIAL HIP JOINT Status: Acute Priority: High Current Visit: No Qualifiers: Laterality: left Qualified Code(s): Z96.642 - Presence of left artificial hip joint (3) Pulmonary embolism on right SNOMED Code(s): 84127514 Code(s): I26.99 - OTHER PULMONARY EMBOLISM WITHOUT ACUTE COR PULMONALE Status: Acute Current Visit: No (4) Atrial fibrillation SNOMED Code(s): 17957673 Code(s): I48.91 - UNSPECIFIED ATRIAL FIBRILLATION Status: Chronic Priority: Medium Current Visit: No Qualifiers: Atrial fibrillation type: paroxysmal Qualified Code(s): I48.0 - Paroxysmal atrial fibrillation (5) Diabetes mellitus SNOMED Code(s): 38091782 Code(s): E11.9 - TYPE 2 DIABETES MELLITUS WITHOUT COMPLICATIONS Status: Chronic Priority: Medium Current Visit: No Qualifiers: Diabetes mellitus type: type 2 Diabetes mellitus shelter insulin use: without shelter use Diabetes mellitus complication status: without complication Qualified Code(s): E11.9 - Type 2 diabetes mellitus without complications (6) Hiatal hernia SNOMED Code(s): 58521291 Code(s): K44.9 - DIAPHRAGMATIC HERNIA WITHOUT OBSTRUCTION OR GANGRENE Status: Chronic Priority: Medium Current Visit: No - Problem List Review Problem List Initiated/Reviewed/Updated: Yes - My Orders Last 24 Hours: My Active Orders 08/20/18 09:34 Ready for Discharge [RC] PER UNIT ROUTINE 08/20/18 10:18 Discontinue Saline Lock [Peripheral IV Discontinue] [OM.PC] Routine - Plan Plan:: 08-14-18 Jose Harris PA-C This 87 yr-old female is being admitted to IP status under the medical management of Dr. Manzano for acute Herpes Zoster with OP therapy failure, with complications of severe pain with weakness, malaise and anorexia secondary to severe pain. Dr Manzano consulted at the time of admit. Patient had been started on OP therapy three days prior but symptoms all markedly worsening on recheck today. Patient is started on IV Acyclovir and Solu-Medrol, with Tylenol and Tramadol available for pain. Can consider stronger pain meds if necessary. Continuing topical triamcinolone. Anticipate 96 hours of IP care. Will order PT and OT consults for strengthening. Will also monitor Accu-cheks for DM d/t IV steroid. 08/15/18 Jose Juan Royal MD She feels some better. Still pain under right breast. Rash persists with new blistering but some blisters starting to crust. 08/16/18 Jose Juan Royal MD Still with pain right thoracic area. Rash starting to crust and dry up. Continue medical therapy. 08/17/18 Jose Juan Royal MD Still with significant pain. Medications helping the pain. Rash continues to weep but is drying up. Continue IV acyclovir. 08/18/18 Jose Juan Royal MD Still with significant pain. Rash is improving but does continue to weep and drain. Clinically necessary to continue IV acyclovir and inpatient status. 08/19/18 late entry Jose Juan Royal MD Still with significant pain and rash. Rash does continue to weep and drain. Kidney function did improve today. Due to severity of illness and multiple medical diagnosis she needs continued inpatient status and IV acyclovir. Weaning off IV steroids. Medically necessary to monitor kidney function, blood sugar, blood pressure (elevated yesterday), pulse (elevated yesterday but improving), and dressing changes. Did discuss discharge plans. She will not be able to do her own dressing changes. Discussed home health. Initially says yes then changed her mind and says her daughter Ibeth will be able to change dressing at least daily. 08/19/18 Jose Juan Royal MD Still with pain. Did not sleep well last night. Rash very minimal drainage. She is reluctant to go home today but has agreed to home health and outpatient PT.
--- NOTE | 2018-08-20 10:25 | PCM.DCSUM1 ---
Discharge Summary - Hospital Course Diagnosis: Stroke: No - Discharge Data Discharge Date: 08/20/18 Discharge Disposition: Home, W Home Health Agency 06 Condition: Good - Discharge Diagnosis/Problem(s) (1) Herpes zoster SNOMED Code(s): 8854280 ICD Code: B02.9 - ZOSTER WITHOUT COMPLICATIONS Status: Acute Priority: High Current Visit: Yes Onset Date: ~08/11/18 Problem Details: Outpatient Therapy Failure Qualifiers: Herpes zoster complications: with other complications Qualified Code(s): B02.8 - Zoster with other complications (2) H/O total hip arthroplasty SNOMED Code(s): 054140513290, 129262388069 ICD Code: Z96.649 - PRESENCE OF UNSPECIFIED ARTIFICIAL HIP JOINT Status: Acute Priority: High Current Visit: No Qualifiers: Laterality: left Qualified Code(s): Z96.642 - Presence of left artificial hip joint (3) Pulmonary embolism on right SNOMED Code(s): 56614867 ICD Code: I26.99 - OTHER PULMONARY EMBOLISM WITHOUT ACUTE COR PULMONALE Status: Acute Current Visit: No (4) Atrial fibrillation SNOMED Code(s): 71751976 ICD Code: I48.91 - UNSPECIFIED ATRIAL FIBRILLATION Status: Chronic Priority: Medium Current Visit: No Qualifiers: Atrial fibrillation type: paroxysmal Qualified Code(s): I48.0 - Paroxysmal atrial fibrillation (5) Diabetes mellitus SNOMED Code(s): 49595831 ICD Code: E11.9 - TYPE 2 DIABETES MELLITUS WITHOUT COMPLICATIONS Status: Chronic Priority: Medium Current Visit: No Qualifiers: Diabetes mellitus type: type 2 Diabetes mellitus longterm insulin use: without longterm use Diabetes mellitus complication status: without complication Qualified Code(s): E11.9 - Type 2 diabetes mellitus without complications (6) Hiatal hernia SNOMED Code(s): 17243392 ICD Code: K44.9 - DIAPHRAGMATIC HERNIA WITHOUT OBSTRUCTION OR GANGRENE Status: Chronic Priority: Medium Current Visit: No - Patient Summary/Data Consults: Consultations 08/14/18 14:55 PT Evaluation and Treatment [CONS] Routine 08/14/18 14:56 OT Evaluation and Treatment [CONS] Routine - Patient Instructions Diet: Diabetic Diet Activity: As Tolerated Driving: Do Not Drive (today and while you are on the pain pills) Showering/Bathing: May Shower Wound/Incision Care: Change Dressing Daily (May stop dressing when area stops draining) Other/Special Instructions: Make an appointment at [facility] for next week for a hospital follow up. - Discharge Plan *PRESCRIPTION DRUG MONITORING PROGRAM REVIEWED*: Not Applicable *COPY OF PRESCRIPTION DRUG MONITORING REPORT IN PATIENT SAI: Not Applicable Prescriptions/Med Rec: Famciclovir [Famvir] 500 mg PO DAILY #3 tablet traMADol [Ultram] 50 mg PO Q6H PRN #60 tablet PRN Reason: Pain Triamcinolone Acetonide [Triamcinolone Acetonide 0.5%] 1 gm TOP BID #1 tube Home Medications: Home Meds Apixaban [Eliquis] 2.5 mg PO BID 08/29/17 [History] Multivitamin [Multivitamins] 1 each PO DAILY 08/14/18 [History] Acetaminophen [Tylenol Extra Strength] 500 mg PO TID PRN #100 tablet 08/20/18 [ Rx] Famciclovir [Famvir] 500 mg PO DAILY #3 tablet 08/20/18 [Rx] Triamcinolone Acetonide [Triamcinolone Acetonide 0.5%] 1 gm TOP BID #1 tube [Rx] traMADol [Ultram] 50 mg PO Q6H PRN #60 tablet 08/20/18 [Rx] Oxygen Therapy Mode: Room Air - Discharge Summary/Plan Comment DC Time >30 min.: No - Patient Data Vitals - Most Recent: Last Vital Signs Temp 96.8 F 08/20/18 07:54 Pulse 93 08/20/18 07:54 Resp 17 08/20/18 07:54 BP 123/85 08/20/18 07:54 Pulse Ox 96 08/20/18 07:54 Weight - Most Recent: 244 lb 15.995 oz I&O - Last 24 hours: Intake & Output 08/19/18 08/20/18 08/20/18 22:59 06:59 14:59 Intake Total 400 600 Output Total 300 Balance 100 600 Lab Results - Last 24 hrs: Laboratory Results - last 24 hr 08/20/18 08/20/18 Range/Units 06:45 06:45 WBC 10.5 H (4.0-10.2) K/uL RBC 4.67 (3.77-5.09) M/uL Hgb 14.2 (11.7-15.5) g/dL Hct 43.1 (34.0-46.0) % MCV 92.3 (84.0-98.0) fL MCH 30.4 (28.2-33.3) pg MCHC 32.9 (31.7-36.0) g/dL RDW 13.0 (11.2-14.1) % Plt Count 279 (150-350) K/uL Neut % (Auto) 65.0 (45.0-80.0) % Lymph % (Auto) 24.8 (10.0-50.0) % [place] % (Auto) 8.7 (2.0-14.0) % Eos % (Auto) 1.3 (0.0-5.0) % Baso % (Auto) 0.2 (0.0-2.0) % Neut # (Auto) 6.83 (1.40-7.00) K/uL Lymph # (Auto) 2.60 (0.50-3.50) K/uL [place] # (Auto) 0.91 (0.00-1.00) K/uL Eos # (Auto) 0.14 (0.00-0.50) K/uL Baso # (Auto) 0.02 (0.00-0.20) K/uL Sodium 138 (136-145) mmol/L Potassium 4.7 (3.5-5.1) mmol/L Chloride 101 (98-107) mmol/L Carbon Dioxide 28.0 (21.0-32.0) mmol/L BUN 36 H (7-18) mg/dL Creatinine 1.30 H (0.51-1.17) mg/dL Est Cr Clr Drug Dosing 27.39 mL/min Estimated GFR (MDRD) 39 mL/min Glucose 151 H (74-106) mg/dL Calcium 8.6 (8.5-10.1) mg/dL Med Orders - Current: Current Medications Acetaminophen (Tylenol Extra Strength) 500 mg PO TID PRN PRN Reason: Pain Last Admin: 08/20/18 03:40 Dose: 500 mg Apixaban (Eliquis) 2.5 mg PO BID [facility] Last Admin: 08/20/18 08:22 Dose: 2.5 mg Acyclovir 1,000 mg/ Sodium (Chloride) 250 mls @ 170 mls/hr IV Q12H [facility] Last Admin: 08/20/18 03:41 Dose: 170 mls/hr Magnesium Hydroxide (Milk Of Magnesia) 30 ml PO BID PRN PRN Reason: Constipation Last Admin: 08/16/18 09:21 Dose: 30 ml Pantoprazole Sodium (Protonix Iv) 40 mg IVPUSH DAILY [facility] Last Admin: 08/20/18 08:22 Dose: 40 mg Sodium Chloride (Saline Flush) 10 ml FLUSH ASDIRECTED PRN PRN Reason: Keep Vein Open Last Admin: 08/20/18 03:41 Dose: 10 ml Sodium Chloride (Saline Flush) 10 ml FLUSH Q12HR [facility] Last Admin: 08/20/18 08:23 Dose: 10 ml Tramadol HCl (Ultram) 50 mg PO Q6H PRN PRN Reason: Pain Last Admin: 08/20/18 03:40 Dose: 50 mg Triamcinolone Acetonide (Triamcinolone Acetonide 0.5%) 0 gm TOP BID@0800,2000 [facility] Last Admin: 08/20/18 08:24 Dose: 1 applic Discontinued Medications Methylprednisolone Sodium Succinate (Solu-Medrol) 40 mg IVPUSH Q8H [facility] Last Admin: 08/14/18 22:35 Dose: 40 mg Methylprednisolone Sodium Succinate (Solu-Medrol) 40 mg IVPUSH DAILY [facility] Last Admin: 08/18/18 07:40 Dose: 40 mg Triamcinolone Acetonide (Triamcinolone Acetonide 0.5%) 0 gm TOP BID [facility] Last Admin: 08/15/18 07:39 Dose: 1 applic
== END 2018-08-20 11:55 | disposition home health service (06) | DRG 865 ==
LOC: LL.MS 13:53
PROVIDERS: ADMIT Physician Assistant; ATTEND Family Medicine
DX: B02.8 Zoster with other complications (principal); I26.99 Other pulmonary embolism without acute cor pulmonale; I48.0 Paroxysmal atrial fibrillation; E78.00 Pure hypercholesterolemia, unspecified; M19.90 Unspecified osteoarthritis, unspecified site; E11.9 Type 2 diabetes mellitus without complications; Z96.642 Presence of left artificial hip joint; K44.9 Diaphragmatic hernia without obstruction or gangrene; Z88.6 Allergy status to analgesic agent; Z88.1 Allergy status to other antibiotic agents; Z91.041 Radiographic dye allergy status; Z86.010 Personal history of colon polyps
CPT/HCPCS: 36415; 80048; 80053; 82962; 85025; 85652; 86140; 97161-GP; 97530-GP; A9270-GY; C9113; J0133; J2920; J7050

== ENCOUNTER → 2019-02-23 | Outpatient (CLI) | payer MEDICARE, BC ==
[2019-02-23 13:05] LABS: CHLORIDE,CL 105 mmol/L (98-107); SODIUM,NA 141 mmol/L (136-145)
== END ==
LOC: LL.DI 12:22
PROVIDERS: ATTEND Physician Assistant
DX: R05 Cough (principal); R10.84 Generalized abdominal pain
CPT/HCPCS: 36415; 71046; 80053; 85025; 86140

== ENCOUNTER 2019-05-16 13:36 | Emergency (ER) | payer MEDICARE, BC ==
[2019-05-16 14:35] VITALS: PULSE 80
[2019-05-16] MEDS ORDERED: Acetaminophen 325 MG Tab PO ONE (14:38)
[2019-05-16 15:17] VITALS: BP 129/71
--- NOTE | 2019-05-16 15:24 | EDM.PDOC ---
ED HPI GENERAL MEDICAL PROBLEM - General Chief Complaint: Headache Stated Complaint: headache Time Seen by Provider: 05/16/19 13:39 Source of Information: Reports: Patient, Family History Limitations: Reports: No Limitations - History of Present Illness INITIAL COMMENTS - FREE TEXT/NARRATIVE: Patient brought in by family after they noticed that patient was acting a bit unusual. Daughter had spoken to patient around 9am and "everything was fine". Patient came to get her hair done by daughter around noon. Daughter says patient said she felt "funny". Daughter later noticed that patient kept repeating the same question. This led daughter to question patient more thoroughly and she noticed that patient could not remember a few things, such as names of grandchildren. Only complaint patient has is mild left sided frontal headache. Has history of brain aneurysm that was worked up last fall. Patient says she feels fine and notices no issues. Headache Pain Score (Numeric/FACES): 3 - Related Data Allergies Allergy/AdvReac Type Severity Reaction Status Date / Time iopamidol [From Isovue-M] Allergy UNKNOWN Verified 05/16/19 13:39 levofloxacin [From Levaquin] Allergy UNKNOWN Verified 05/16/19 13:39 naproxen Allergy Itching Verified 05/16/19 13:39 Home Meds: Home Meds Apixaban [Eliquis] 2.5 mg PO BID 08/29/17 [History] Multivitamin [Multivitamins] 1 each PO DAILY 08/14/18 [History] Acetaminophen [Tylenol Extra Strength] 500 mg PO TID PRN #100 tablet 08/20/18 [ Rx] Past Medical History HEENT History: Reports: Other (See Below) Other HEENT History: Has partial dentures Cardiovascular History: Reports: Afib, High Cholesterol, Other (See Below) Other Cardiovascular History: pt denies hx of afib, recent report that after patient was in Afib and converted back to sinus rhythm Respiratory History: Reports: PE Gastrointestinal History: Reports: Colon Polyp, Diverticulosis, Hiatal Hernia Genitourinary History: Reports: Urinary Incontinence Musculoskeletal History: Reports: Osteoarthritis Neurological History: Reports: None Other Neuro History: cerebral art aneurysm/being observed for this Psychiatric History: Reports: None Endocrine/Metabolic History: Reports: Diabetes, Type II Hematologic History: Reports: None Other Hematologic History: LYMPHEDEMA Immunologic History: Reports: None Oncologic (Cancer) History: Reports: Breast, Uterine Dermatologic History: Reports: None - Infectious Disease History Infectious Disease History: Reports: Chicken Pox, Measles - Past Surgical History HEENT Surgical History: Reports: Tonsillectomy Social & Family History - Family History Family Medical History: Noncontributory - Tobacco Use Smoking Status *Q: Never Smoker - Caffeine Use Caffeine Use: Reports: Coffee Other Caffeine Use: 1.5 cups per day - Recreational Drug Use Recreational Drug Use: No - Living Situation & Occupation Living situation: Reports: ED ROS GENERAL - Review of Systems Review Of Systems: See Below Constitutional: Reports: No Symptoms HEENT: Reports: No Symptoms. Denies: Vertigo, Vision Change Respiratory: Reports: No Symptoms Cardiovascular: Reports: No Symptoms GI/Abdominal: Reports: No Symptoms : Reports: No Symptoms Musculoskeletal: Reports: No Symptoms (no acute changes from baseline) Skin: Reports: No Symptoms Neurological: Reports: Headache, Numbness (has long standing mild numbness left arm. No acute changes reported. ), Other (Patient unable to remember some things when asked). Denies: Dizziness, Seizure, Syncope, Tingling, Trouble Speaking, Difficulty Walking, Weakness, Change in Speech, Gait Disturbance Psychiatric: Reports: No Symptoms Hematologic/Lymphatic: Reports: No Symptoms ED EXAM, GENERAL - Physical Exam Exam: See Below Exam Limited By: No Limitations General Appearance: Alert, No Apparent Distress, Obese Eye Exam: Bilateral Eye: EOMI, PERRL Ears: Normal External Exam, Hearing Grossly Normal Nose: No: Nasal Deformity, Nasal Swelling, Nasal Drainage Throat/Mouth: Normal Lips, Normal Voice, No Airway Compromise Head: Atraumatic, Normocephalic Neck: Supple, Non-Tender, Full Range of Motion Respiratory/Chest: No Respiratory Distress, Lungs Clear, Normal Breath Sounds, No Accessory Muscle Use, Chest Non-Tender Cardiovascular: Normal Peripheral Pulses, No Murmur, Irregularly Irregular GI/Abdominal: Normal Bowel Sounds, Soft, Non-Tender, No Distention (Female) Exam: Deferred Rectal (Female) Exam: Deferred Back Exam: No: CVA Tenderness (L), CVA Tenderness (R), Muscle Spasm Extremities: Normal Range of Motion (for age), Non-Tender, Normal Capillary Refill Neurological: Alert, Oriented (knows where she is/circumstances. At times cannot remember her age accurately/year accurately), CN II-XII Intact, No Motor/ Sensory Deficits Psychiatric: Normal Affect, Normal Mood Skin Exam: Warm, Dry, Intact, Normal Color EKG INTERPRETATION EKG Date: 05/16/19 Time: 15:24 Rhythm: A-Fib Rate (Beats/Min): 81 [place]: Normal P-Wave: Absent QRS: Normal ST-T: Normal QT: Normal Comparison: Other: (Previous EKG from 2016 did not show AFib/family says patient has been in Afib for awhile.) Course - Vital Signs Last Recorded V/S: Last Vital Signs Temp 36.6 C 05/16/19 13:46 Pulse 80 05/16/19 15:04 Resp 18 05/16/19 15:04 BP 129/71 05/16/19 15:04 Pulse Ox 98 05/16/19 15:04 - Orders/Labs/Meds Orders: Active Orders 24 hr Category Date Time Status Blood Glucose Check, Bedside [RC] ONETIME Care 05/16/19 14:58 Inactive EKG Documentation Completion [RC] ASDIRECTED Care 05/16/19 14:57 Ordered Head wo Cont [CT] Stat Exams 05/16/19 13:44 Ordered PROLACTIN [REF] Stat Lab 05/16/19 14:10 Received UA W/MICROSCOPIC [URIN] Stat Lab 05/16/19 13:45 Ordered Labs: Laboratory Tests 05/16/19 05/16/19 05/16/19 Range/Units 13:50 13:50 13:50 WBC 8.9 (4.0-10.2) K/uL RBC 4.95 (3.77-5.09) M/uL Hgb 14.8 (11.7-15.5) g/dL Hct 46.3 H (34.0-46.0) % MCV 93.5 (84.0-98.0) fL MCH 29.9 (28.2-33.3) pg MCHC 32.0 (31.7-36.0) g/dL RDW 14.6 H (11.2-14.1) % Plt Count 207 (150-350) K/uL Neut % (Auto) 81.4 H (45.0-80.0) % Lymph % (Auto) 13.1 (10.0-50.0) % [place] % (Auto) 3.3 (2.0-14.0) % Eos % (Auto) 1.9 (0.0-5.0) % Baso % (Auto) 0.3 (0.0-2.0) % Neut # (Auto) 7.26 H (1.40-7.00) K/uL Lymph # (Auto) 1.17 (0.50-3.50) K/uL [place] # (Auto) 0.29 (0.00-1.00) K/uL Eos # (Auto) 0.17 (0.00-0.50) K/uL Baso # (Auto) 0.03 (0.00-0.20) K/uL PT (9.5-12.0) SEC INR APTT (21.0-31.3) SEC D-Dimer, Quantitative 489 H (0-400) ng/mL Sodium 140 (136-145) mmol/L Potassium 4.4 (3.5-5.1) mmol/L Chloride 105 (98-107) mmol/L Carbon Dioxide 26.4 (21.0-32.0) mmol/L BUN 29 H (7-18) mg/dL Creatinine 1.21 H (0.51-1.17) mg/dL Est Cr Clr Drug Dosing 30.08 mL/min Estimated GFR (MDRD) 42 mL/min Glucose 95 (74-106) mg/dL Calcium 9.7 (8.5-10.1) mg/dL Magnesium 1.6 L (1.8-2.4) mg/dL Total Bilirubin 0.4 (0.2-1.0) mg/dL AST 14 L (15-37) U/L ALT 17 (12-78) U/L Alkaline Phosphatase 95 (46-116) IU/L Creatine Kinase (26-308) U/L Creatine Kinase Index (0.0-2.5) % CK-MB (CK-2) (0.00-3.60) ng/mL Troponin I (0.000-0.056) ng/mL NT-Pro-B Natriuret Pep (0-125) pg/mL Total Protein 7.2 (6.4-8.2) g/dL Albumin 3.5 (3.4-5.0) g/dL 05/16/19 05/16/1905/16/20 Range/Units 13:50 14:10 14:10 WBC (4.0-10.2) K/uL RBC (3.77-5.09) M/uL Hgb (11.7-15.5) g/dL Hct (34.0-46.0) % MCV (84.0-98.0) fL MCH (28.2-33.3) pg MCHC (31.7-36.0) g/dL RDW (11.2-14.1) % Plt Count (150-350) K/uL Neut % (Auto) (45.0-80.0) % Lymph % (Auto) (10.0-50.0) % [place] % (Auto) (2.0-14.0) % Eos % (Auto) (0.0-5.0) % Baso % (Auto) (0.0-2.0) % Neut # (Auto) (1.40-7.00) K/uL Lymph # (Auto) (0.50-3.50) K/uL [place] # (Auto) (0.00-1.00) K/uL Eos # (Auto) (0.00-0.50) K/uL Baso # (Auto) (0.00-0.20) K/uL PT 11.2 (9.5-12.0) SEC INR 1.0 APTT 29.5 (21.0-31.3) SEC D-Dimer, Quantitative (0-400) ng/mL Sodium (136-145) mmol/L Potassium (3.5-5.1) mmol/L Chloride (98-107) mmol/L Carbon Dioxide (21.0-32.0) mmol/L BUN (7-18) mg/dL Creatinine (0.51-1.17) mg/dL Est Cr Clr Drug Dosing mL/min Estimated GFR (MDRD) mL/min Glucose (74-106) mg/dL Calcium (8.5-10.1) mg/dL Magnesium (1.8-2.4) mg/dL Total Bilirubin (0.2-1.0) mg/dL AST (15-37) U/L ALT (12-78) U/L Alkaline Phosphatase (46-116) IU/L Creatine Kinase 44 (26-308) U/L Creatine Kinase Index 1.6 (0.0-2.5) % CK-MB (CK-2) 0.70 (0.00-3.60) ng/mL Troponin I 0.000 (0.000-0.056) ng/mL NT-Pro-B Natriuret Pep 1974 H (0-125) pg/mL Total Protein (6.4-8.2) g/dL Albumin (3.4-5.0) g/dL Meds: Medications Discontinued Medications Generic Name Dose Route Start Last Admin Trade Name Tara PRN Reason Stop Dose Admin Acetaminophen 650 mg 05/16/19 14:38 05/16/19 14:43 Tylenol PO 05/16/19 14:39 650 mg NOW ONE Administration - Radiology Interpretation CT Results Date: 05/16/19 CT Results Time: 14:51 (No acute changes noted per Radiology) - Re-Assessments/Exams Free Text/Narrative Re-Assessment/Exam: Baseline labs obtained. EKG. CT of head. Aneurysm appeared stable per Radiology. Call made to [facility] and patient discussed with both Neuro/ER. It was recommended that she be evaluated in ER with MRI and was accepted for transfer by . Further workup will be determined on site. No additional intervention requested for patient prior to transfer. Patient continued to be happy. NIH stroke scale remained normal, or would have score of 1 when patient would not remember exact year or current year/date. Patient did not want to go via EMS and instead wanted family to drive her. Family willing to drive patient to [facility]. Given the overall unremarkable exam/ CT scan/labs, it was felt that this could be reasonable option. Departure - Departure Time of Disposition: 15:21 Disposition: DC/Tfer to Acute Hospital 02 Condition: Good Clinical Impression: Acute memory impairment, Hypomagnesemia - Discharge Information *PRESCRIPTION DRUG MONITORING PROGRAM REVIEWED*: Not Applicable *COPY OF PRESCRIPTION DRUG MONITORING REPORT IN PATIENT SIA: Not Applicable Referrals: Jackelin Harris PA [Primary Care Provider] - Forms: ED Department Discharge Additional Instructions: Drive directly to [facility] ER. Give them the EMTALA paper. is expecting you. Sepsis Event Note - Evaluation Sepsis Screening Result: No Definite Risk - Focused Exam Vital Signs: Vital Signs Temp Pulse Resp BP Pulse Ox 05/16/19 15:04 80 18 129/71 98 05/16/19 14:35 80 16 128/73 99 05/16/19 14:00 80 18 116/76 100 05/16/19 13:50 73 18 147/63 H 97 05/16/19 13:46 36.6 C 76 18 154/80 H 98 Date Exam was Performed: 05/16/19 Time Exam was Performed: 16:37 - My Orders Last 24 Hours: My Active Orders 05/16/19 13:44 Head wo Cont [CT] Stat 05/16/19 13:45 UA W/MICROSCOPIC [URIN] Stat 05/16/19 14:10 PROLACTIN [REF] Stat 05/16/19 14:57 EKG Documentation Completion [RC] ASDIRECTED 05/16/19 14:58 Blood Glucose Check, Bedside [RC] ONETIME - Assessment/Plan Last 24 Hours: My Active Orders 05/16/19 13:44 Head wo Cont [CT] Stat 05/16/19 13:45 UA W/MICROSCOPIC [URIN] Stat 05/16/19 14:10 PROLACTIN [REF] Stat 05/16/19 14:57 EKG Documentation Completion [RC] ASDIRECTED 05/16/19 14:58 Blood Glucose Check, Bedside [RC] ONETIME
== END 2019-05-16 15:45 ==
LOC: LL.ED 13:36
DX: G31.84 Mild cognitive impairment of uncertain or unknown etiology (principal); E83.42 Hypomagnesemia; E11.9 Type 2 diabetes mellitus without complications; Z88.6 Allergy status to analgesic agent; Z88.8 Allergy status to other drugs, medicaments and biological substances; Z91.041 Radiographic dye allergy status
CPT/HCPCS: 36415; 70450; 80053; 82550; 82553; 83735; 83880; 84146; 84484; 85025; 85379; 85610; 85730; 93005; 93010; 99284; 99285; A9270